=== PATIENT | male | born 1930 | race African-American/Black ===

== ENCOUNTER → 2016-07-02 | Outpatient (CLI) | payer MEDICARE | LOC: RAD 11:19 | PROVIDERS: ATTEND Physician Assistant | DX: R05 Cough (principal) | CPT/HCPCS: 71020 ==

== ENCOUNTER → 2016-07-31 | Outpatient (CLI) | payer MEDICARE | LOC: RAD 08:27 | PROVIDERS: ATTEND Urology | DX: N28.89 Other specified disorders of kidney and ureter (principal) | CPT/HCPCS: 74170; 82565 ==

== ENCOUNTER → 2016-09-06 | Outpatient (CLI) | payer MEDICARE | LOC: OD 11:33 | PROVIDERS: ATTEND Family Medicine | DX: R05 Cough (principal) | CPT/HCPCS: 71020 ==

== ENCOUNTER → 2017-02-12 | Outpatient (CLI) | payer MEDICARE ==
--- NOTE | 2017-02-12 17:41 | RADIOLOGY REPORT (SQ) ---
EXAM DESCRIPTION: CT ABDOMEN COMBO COMPLETED DATE/TIME: 02/12/2017 1:30 pm REASON FOR STUDY: RENAL MASS (N28.89) N28.89 OTHER SPECIFIED DISORDERS OF KIDNEY AND URETER COMPARISON: CT abdomen pelvis 07/31/2016, 10/09/2015, 10/03/2015 Bilateral renal ultrasound 06/19/2016 TECHNIQUE: CT scan of the abdomen performed with intravenous contrast, and without oral contrast. Co ntrasted imaging performed using helical scanning technique with dynamic intravenous contrast injecti on. Images reviewed with lung, soft tissue, and bone windows. Reconstructed coronal and sagittal MPR images reviewed. Delayed images for evaluation of the urinary system also acquired and evaluated. All images stored on PACS. All CT scanners at this facility use dose modulation, iterative reconstruction, and/or weight based d osing when appropriate to reduce radiation dose to as low as reasonably achievable (ALARA). [facility]: Dose Right [facility]: CareDose [facility]: Dose Right [facility]: Teradose 4D [facility]: [place] CONTRAST TYPE AND DOSE: contrast/concentration: Isovue 370.00 mg/ml; Total Contrast Delivered: 100.0 ml; Total Saline Delivered: 70.0 ml RENAL FUNCTION: Creatinine 1.1 RADIATION DOSE: Up-to-date CT equipment and radiation dose reduction techniques were employed. CTDIv ol: 8.1 - 30.2 mGy. DLP: 1782 mGy-cm.. LIMITATIONS: None. FINDINGS: LOWER CHEST: Cardiomegaly. Small hiatal hernia. No nodules or infiltrates. LIVER: Normal size. No masses. No dilated ducts. SPLEEN: Normal size. No focal lesions. PANCREAS: No masses. No significant calcifications. No adjacent inflammation or peripancreatic fluid collections. Pancreatic duct not dilated. GALLBLADDER: No identified stones by CT criteria. No inflammatory changes to suggest cholecystitis. ADRENAL GLANDS: No significant masses or asymmetry. RIGHT KIDNEY AND URETER: No solid masses. Tiny less than 5 mm right upper pole intrarenal nonobstru ctive calculi unchanged. No hydronephrosis or hydroureter. LEFT KIDNEY AND URETER: Stable masses in the left lower pole, solid with contrast enhancement compati ble with malignancy. Stable 3.6 x 3.4 cm left lower pole solid enhancing renal mass, stable left low er pole 1.8 x 1.8 cm solid enhancing mass. Tiny less than 5 mm left upper pole intrarenal nonobstru ctive stones. No hydronephrosis or hydroureter. AORTA AND VESSELS: No aneurysm. No dissection. Common origin celiac and SMA. Single renal arteries bilaterally with greater than 50% stenosis right proximal renal artery on coronal image 43 and axial image 68. RETROPERITONEUM: No retroperitoneal adenopathy, hemorrhage or masses. BOWEL AND PERITONEAL CAVITY: No masses or inflammatory changes. No free fluid or peritoneal masses. APPENDIX: Not in the field of view ABDOMINAL WALL: No masses. No hernias. BONES: Degenerative changes lower lumbar spine OTHER: No other significant finding. IMPRESSION: Stable solid masses left lower pole kidney Bilateral upper pole intrarenal nonobstructive intrarenal stones TECHNICAL DOCUMENTATION: JOB ID: [id number] Quality ID # [id number]: Final reports with documentation of one or more dose reduction techniques (e.g., Au tomated exposure control, adjustment of the mA and/or kV according to patient size, use of iterative reconstruction technique) 2010 [employer]- All Rights Reserved
== END ==
LOC: RAD 12:28
PROVIDERS: ATTEND Urology
DX: N28.89 Other specified disorders of kidney and ureter (principal)
CPT/HCPCS: 74170; 82565

== ENCOUNTER → 2017-10-23 | Outpatient (CLI) | payer MEDICARE ==
--- NOTE | 2017-10-23 17:55 | RADIOLOGY REPORT (SQ) ---
EXAM DESCRIPTION: CT ABDOMEN WITH IV ORAL CONT COMPLETED DATE/TIME: 10/23/2017 2:30 pm REASON FOR STUDY: RENAL MASS (N28.89) N28.89 OTHER SPECIFIED DISORDERS OF KIDNEY AND URETER COMPARISON: CT ABDOMEN WITH CONTRAST 10/09/2015, 07/31/2016, 02/12/2017 TECHNIQUE: CT scan of the abdomen performed with intravenous and without oral contrast using helical scanning technique with dynamic intravenous contrast injection. Images reviewed with lung, soft tiss ue, and bone windows. Reconstructed coronal and sagittal MPR images reviewed. Delayed images for eval uation of the urinary system also acquired and evaluated. All images stored on PACS. All CT scanners at this facility use dose modulation, iterative reconstruc tion, and/or weight based dosing when appropriate to reduce radiation dose to as low as reasonably ac hievable (ALARA). [facility]: Dose Right [facility]: CareDose [facility]: Dose Right [facility]: Teradose 4D [facility]: [employer] CONTRAST TYPE AND DOSE: contrast/concentration: Isovue 370.00 mg/ml; Total Contrast Delivered: 91.0 ml; Total Saline Delivered: 70.0 ml RENAL FUNCTION: Creatinine 1.1 RADIATION DOSE: CT Rad equipment meets quality standard of care and radiation dose reduction techniq ues were employed. CTDIvol: 13.9 - 16.8 mGy. DLP: 978 mGy-cm. . LIMITATIONS: None. FINDINGS: LOWER CHEST: Lung bases are clear. Mild cardiomegaly with old CABG. Small hiatal hernia LIVER: Normal size. No masses. No dilated ducts. SPLEEN: Normal size. No focal lesions. PANCREAS: No masses. No significant calcifications. No adjacent inflammation or peripancreatic fluid collections. Pancreatic duct not dilated. GALLBLADDER: No identified stones by CT criteria. No inflammatory changes to suggest cholecystitis. ADRENAL GLANDS: No significant masses or asymmetry. RIGHT KIDNEY AND URETER: No solid masses. Calcifications of the right upper and lower pole less desiree n 5 mm in size, either tiny intrarenal nonobstructive stones or vascular calcifications. No hydrone phrosis or hydroureter. LEFT KIDNEY AND URETER: Stable 3.7 x 3.4 cm left lower pole mass. Stable 1.9 x 1.8 cm left lower tabby e mass. Stable calcifications over the left upper and lower pole kidney, likely intrarenal nonobstr uctive stones less than 5 mm in size. No hydronephrosis or hydroureter. AORTA AND VESSELS: No aneurysm. No dissection. At least 50% right renal artery stenosis, stable. RETROPERITONEUM: No retroperitoneal adenopathy, hemorrhage or masses. BOWEL AND PERITONEAL CAVITY: No masses or inflammatory changes. No free fluid or peritoneal masses. APPENDIX: Not in the field of view ABDOMINAL WALL: Tiny fat containing umbilical hernia BONES: Degenerative disc changes lower lumbar spine OTHER: No other significant finding. IMPRESSION: Stable masses in the left lower pole kidney. TECHNICAL DOCUMENTATION: JOB ID: [id number] Quality ID # 436: Final reports with documentation of one or more dose reduction techniques (e.g., Au tomated exposure control, adjustment of the mA and/or kV according to patient size, use of iterative reconstruction technique) 2010 [employer]- All Rights Reserved Reading location - IP/workstation name: [email or web address]
== END ==
LOC: RAD 13:20
PROVIDERS: ATTEND Urology
DX: N28.89 Other specified disorders of kidney and ureter (principal)
CPT/HCPCS: 74160; 82565

== ENCOUNTER → 2018-10-27 | Outpatient (CLI) | payer MEDICARE ==
--- NOTE | 2018-10-27 16:01 | RADIOLOGY REPORT (SQ) ---
EXAM DESCRIPTION: CT ABDOMEN IV CONTRAST ONLY COMPLETED DATE/TIME: 10/27/2018 2:23 pm REASON FOR STUDY: LEFT RENAL MASS (N28.89) N28.89 OTHER SPECIFIED DISORDERS OF KIDNEY AND URETER COMPARISON: 10/23/2017 TECHNIQUE: CT scan of the abdomen performed with intravenous and without oral contrast using helical scanning technique with dynamic intravenous contrast injection. Images reviewed with lung, soft tiss ue, and bone windows. Reconstructed coronal and sagittal MPR images reviewed. Delayed images for eval uation of the urinary system also acquired and evaluated. All images stored on PACS. All CT scanners at this facility use dose modulation, iterative reconstruc tion, and/or weight based dosing when appropriate to reduce radiation dose to as low as reasonably ac hievable (ALARA). [facility]: Dose Right [facility]: CareDose [facility]: Dose Right [facility]: Teradose 4D [facility]: [employer] CONTRAST TYPE AND DOSE: contrast/concentration: Isovue 350.00 mg/ml; Total Contrast Delivered: 100.0 ml; Total Saline Delivered: 72.0 ml RENAL FUNCTION: GFR > 60. RADIATION DOSE: CT Rad equipment meets quality standard of care and radiation dose reduction techniq ues were employed. CTDIvol: 11.7 - 14.2 mGy. DLP: 851 mGy-cm. . LIMITATIONS: None. FINDINGS: LOWER CHEST: Cardiomegaly. No acute findings. LIVER: Normal size. No masses. No dilated ducts. SPLEEN: Normal size. No focal lesions. PANCREAS: No masses. No significant calcifications. No adjacent inflammation or peripancreatic fluid collections. Pancreatic duct not dilated. GALLBLADDER: No identified stones by CT criteria. No inflammatory changes to suggest cholecystitis. ADRENAL GLANDS: No significant masses or asymmetry. RIGHT KIDNEY AND URETER: No solid masses. Stable renal calculi. No hydronephrosis or hydroureter. LEFT KIDNEY AND URETER: Lower pole solid lesion 1.7 x 1.7 cm. 85 HU postcontrast. Larger lower pole lesion 2.7 x 3.0 cm not significantly changed by my measurements. 102 HU postcontrast. Stable trupti al calculi. No hydronephrosis or hydroureter. AORTA AND VESSELS: Ectasia. No aneurysm. RETROPERITONEUM: No retroperitoneal adenopathy, hemorrhage or masses. BOWEL AND PERITONEAL CAVITY: No masses or inflammatory changes. No free fluid or peritoneal masses. APPENDIX: Normal. ABDOMINAL WALL: No masses. No hernias. BONES: No significant or acute findings. OTHER: No other significant finding. IMPRESSION: 1. Stable solid lesions left kidney. 2. Stable bilateral renal calculi. TECHNICAL DOCUMENTATION: JOB ID: [id number] Quality ID # 436: Final reports with documentation of one or more dose reduction techniques (e.g., Au tomated exposure control, adjustment of the mA and/or kV according to patient size, use of iterative reconstruction technique) 2010 [employer]- All Rights Reserved Reading location - IP/workstation name: [email or web address]-
== END ==
LOC: RAD 13:23
PROVIDERS: ATTEND Urology
DX: N28.89 Other specified disorders of kidney and ureter (principal)
CPT/HCPCS: 74160; 82565

== ENCOUNTER 2019-06-27 13:42 | Observation (INO) | payer MEDICARE ==
--- NOTE | 2019-06-27 15:11 | ER Document Report ---
ED Medical Screen (RME) - General Chief Complaint: Weakness Stated Complaint: WEAKNESS Time Seen by Provider: 06/27/19 15:00 Primary Care Provider: SYLVAIN MESA MD [Primary Care Provider] - Follow up as needed Notes: Patient is a very pleasant 89-year-old male who presents to the emergency department after a fall. The fall happened 3 days ago. He had pain in his feet and ended up falling over. Patient denies any pain. His daughter is at bedside and states that he has been leaning to the left for the past few days and he is not acting his normal self. Exam: Tenderness to bilateral great toes. S1, S2. I have greeted and performed a rapid initial assessment of this patient. A comprehensive ED assessment and evaluation of the patient, analysis of test results and completion of medical decision making process will be conducted by an additional ED providers. TRAVEL OUTSIDE OF THE [place] 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, Hx Hypercholesterolemia, Hx Hypertension Denies: Hx Atrial Fibrillation, Hx Congestive Heart Failure, Hx Peripheral Va scular Disease, Hx Heart Murmur Pulmonary Medical History: Neurological Medical History: Denies: Hx Cerebrovascular Accident, Hx Seizures, Hx Parkinson's Disease Endocrine Medical History: Denies: Hx Graves' Disease, Hx Hyperthyroidism, Hx Hypothyroidism Renal/ Medical History: Denies: Hx Benign Prostatic Hyperplasia, Hx End Stage Renal Disease, Hx Kidney Stones, Hx Peritoneal Dialysis Malignancy Medical History: Denies Hx Leukemia GI Medical History: Denies: Hx Crohn's Disease, Hx Gastroesophageal Reflux Disease, Hx Hiatal Hernia, Hx Irritable Bowel, Hx Liver Failure, Hx Pancreatitis, Hx Ulcer Musculoskeltal Medical History: Reports Hx Arthritis - Hands,gout, Denies Hx Fibromyalgia, Denies Hx Multiple Sclerosis, Denies Hx Muscular Dystrophy, Denies Hx Systemic Lupus Erythematosus Psychiatric Medical History: Denies: Hx Dementia Traumatic Medical History: Denies: Hx Fractures Infectious Medical History: Denies: Hx HIV Past Surgical History: Reports: Hx Cardiac Surgery - bypass, Hx Coronary Artery Bypass Graft - triple bypass 2002, Hx Herniorrhaphy - x2. Denies: Hx Appendectomy, Hx Bowel Surgery, Hx Cholecystectomy, Hx Colostomy, Hx Gastric Bypass Surgery, Hx Pacemaker, Hx Tonsillectomy - Immunizations Hx Diphtheria, Pertussis, Tetanus Vaccination: No Physical Exam - Vital signs Vitals: Temp Pulse Resp BP Pulse Ox 98.4 F 68 16 134/82 H 96 06/27/19 14:00 06/27/19 14:00 06/27/19 14:00 06/27/19 14:00 06/27/19 14:00 Course - Vital Signs Vital signs: Temp Pulse Resp BP Pulse Ox 98.4 F 68 16 134/82 H 96 06/27/19 14:00 06/27/19 14:00 06/27/19 14:00 06/27/19 14:00 06/27/19 14:00 Doctor's Discharge - Discharge Referrals: SYLVAIN MESA MD [Primary Care Provider] - Follow up as needed
[2019-06-27 16:16] LABS: ABSOLUTE BASOPHILS # (AUTO) 0.1 10^3/uL (0.0-0.2); ABSOLUTE EOSINOPHILS # (AUTO) 0.1 10^3/uL (0.0-0.6); ABSOLUTE LYMPHOCYTES (AUTO) 1.9 10^3/uL (0.5-4.7); ABSOLUTE MONOCYTES (AUTO) 0.6 10^3/uL (0.1-1.4); ABSOLUTE NEUT (AUTO) 2.6 10^3/uL (1.7-8.2); BASOPHILS % (AUTO) 1.1 % (0-2); EOSINOPHILS % (AUTO) 2.4 % (0-6); HEMATOCRIT 39.6 % (37.9-51.0); HEMOGLOBIN 13.4 g/dL (13.5-17.0); LYMPHOCYTES % (AUTO) 35.1 % (13-45); MEAN CORPUSCULAR HEMOGLOBIN 27.7 pg (27.0-33.4); MEAN CORPUSCULAR HGB CONC 33.9 g/dL (32.0-36.0); MEAN CORPUSCULAR VOLUME 82 fl (80-97); MONOCYTES % (AUTO) 12.1 % (3-13); PLATELET COUNT 208 10^3/uL (150-450); RED BLOOD COUNT 4.83 10^6/uL (4.35-5.55); RED CELL DISTRIBUTION WIDTH 16.5 % (11.5-14.0); SEGMENTED NEUTROPHILS % (AUTO) 49.3 % (42-78); TOTAL CELLS COUNTED % (AUTO) 100 %; WHITE BLOOD COUNT 5.3 10^3/uL (4.0-10.5)
[2019-06-27 16:38] LABS: ALBUMIN 4.4 g/dL (3.5-5.0); ALKALINE PHOSPHATASE 62 U/L (38-126); ANION GAP 9 (5-19); ASPARTATE AMINO TRANSFERASE 19 U/L (17-59); BILIRUBIN,DIRECT 0.2 mg/dL (0.0-0.4); BILIRUBIN,TOTAL 0.5 mg/dL (0.2-1.3); BLOOD UREA NITROGEN 14 mg/dL (7-20); CALCIUM 9.7 mg/dL (8.4-10.2); CARBON DIOXIDE 27 mmol/L (22-30); CHLORIDE 105 mmol/L (98-107); GLUCOSE 78 mg/dL (75-110); POTASSIUM 4.3 mmol/L (3.6-5.0); TOTAL PROTEIN 7.3 g/dL (6.3-8.2)
--- NOTE | 2019-06-27 16:43 | RADIOLOGY REPORT (SQ) ---
EXAM DESCRIPTION: FOOT BILATERAL 3 VIEWS COMPLETED DATE/TIME: 06/27/2019 3:49 pm REASON FOR STUDY: fall; toe pain COMPARISON: None. NUMBER OF VIEWS: Three views. TECHNIQUE: AP, lateral and oblique radiographic images acquired of the bilateral feet. LIMITATIONS: None. FINDINGS: MINERALIZATION: Osteopenia. BONES: No acute fracture or dislocation. Chronic fracture deformities of the left 2nd, 3rd, 4th, and 5th metatarsals. No worrisome bone lesions. Left greater than right flatfoot deformities. JOINTS: No effusions. Moderate bilateral midfoot arthrosis. SOFT TISSUES: No soft tissue swelling. No foreign body. OTHER: No other significant finding. IMPRESSION: Osteopenia. No acute displaced fracture or dislocation. Chronic fracture deformities o f the left metatarsals. Left greater than right flatfoot deformities and midfoot arthrosis. TECHNICAL DOCUMENTATION: JOB ID: [id number] [employer]- All Rights Reserved Reading location - IP/workstation name: [email or web address]
--- NOTE | 2019-06-27 16:45 | RADIOLOGY REPORT (SQ) ---
EXAM DESCRIPTION: CHEST SINGLE VIEW COMPLETED DATE/TIME: 06/27/2019 3:49 pm REASON FOR STUDY: AMS COMPARISON: 07/02/2016 EXAM PARAMETERS: NUMBER OF VIEWS: One view. TECHNIQUE: Single frontal radiographic view of the chest acquired. RADIATION DOSE: NA LIMITATIONS: None. FINDINGS: LUNGS AND PLEURA: No opacities, masses or pneumothorax. No pleural effusion. MEDIASTINUM AND HILAR STRUCTURES: No masses. Contour normal. HEART AND VASCULAR STRUCTURES: Cardiomegaly status post median sternotomy. BONES: No acute findings. HARDWARE: None in the chest. OTHER: No other significant finding. IMPRESSION: Cardiomegaly without acute abnormality of the lungs in AP portable projection. TECHNICAL DOCUMENTATION: JOB ID: [id number] [employer]- All Rights Reserved Reading location - IP/workstation name: [email or web address]
--- NOTE | 2019-06-27 16:53 | RADIOLOGY REPORT (SQ) ---
EXAM DESCRIPTION: CT HEAD WITHOUT COMPLETED DATE/TIME: 06/27/2019 4:21 pm REASON FOR STUDY: AMS COMPARISON: 07/14/2015 TECHNIQUE: Axial images acquired through the brain without intravenous contrast. Images reviewed wi th bone, brain and subdural windows. Additional sagittal and coronal reconstructions were generated. Images stored on PACS. All CT scanners at this facility use dose modulation, iterative reconstruction, and/or weight based d osing when appropriate to reduce radiation dose to as low as reasonably achievable (ALARA). [facility]: Dose Right [facility]: CareDose [facility]: Dose Right [facility]: Teradose 4D [facility]: [employer] RADIATION DOSE: CT Rad equipment meets quality standard of care and radiation dose reduction techniq ues were employed. CTDIvol: 48.7 mGy. DLP: 980 mGy-cm. mGy. LIMITATIONS: None. FINDINGS: VENTRICLES: Normal size and contour. CEREBRUM: No masses. No hemorrhage. No midline shift. No evidence for acute infarction. Extensive periventricular white matter hypodensity and encephalomalacia of the right parietal and left occipita l lobes unchanged from prior. CEREBELLUM: No masses. No hemorrhage. No alteration of density. No evidence for acute infarction. EXTRAAXIAL SPACES: No fluid collections. No masses. ORBITS AND GLOBE: No intra- or extraconal masses. Normal contour of globe without masses. CALVARIUM: No fracture. PARANASAL SINUSES: No fluid or mucosal thickening. SOFT TISSUES: No mass or hematoma. OTHER: No other significant finding. IMPRESSION: 1. No acute intracranial pathology. 2. 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 EVIDENCE OF ACUTE STROKE: NO. COMMENT: Quality ID # 436: Final reports with documentation of one or more dose reduction techniques (e.g., Automated exposure control, adjustment of the mA and/or kV according to patient size, use of iterative reconstruction technique) TECHNICAL DOCUMENTATION: JOB ID: [id number] [employer]- All Rights Reserved Reading location - IP/workstation name: [email or web address]
[2019-06-27 21:07] LABS: APPEARANCE,URINE CLEAR; BILIRUBIN,URINE NEGATIVE (NEGATIVE); COLOR,URINE YELLOW; GLUCOSE, URINE NEGATIVE (NEGATIVE); KETONES,URINE NEGATIVE (NEGATIVE); LEUKOCYTE ESTERASE,URINE NEGATIVE (NEGATIVE); NITRITE,URINE NEGATIVE (NEGATIVE); PROTEIN,URINE 30 mg/dL (NEGATIVE)
--- NOTE | 2019-06-27 21:19 | ER Document Report ---
ED General - General Chief Complaint: Weakness Stated Complaint: WEAKNESS Time Seen by Provider: 06/27/19 15:00 Notes: Patient is an 89 year old male that comes to the emergency department for chief complaint of weakness, difficulty ambulating, and a fall that occurred 3 days ago. Patient lives with his daughter, she states that over the past 2 days he started leaning to the left and they have difficulty with him ambulating as he normally does. He ambulates with assistance with either a walker or direct assistance from a family member. Patient is blind, has a history of CABG, hypertension, hyperlipidemia. He denies headache, chest pain, vomiting, shortness of breath. He does report intermittent mild dizziness and intermittent pain in both of his feet which is chronic. Patient is still eating and drinking normally. Family denies history of CVA. 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 TRAVEL OUTSIDE OF THE [place] 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, Hx Hypercholesterolemia, Hx Hypertension Denies: Hx Atrial Fibrillation, Hx Congestive Heart Failure, Hx Peripheral Vascular Disease, Hx Heart Murmur Pulmonary Medical History: Neurological Medical History: Denies: Hx Cerebrovascular Accident, Hx Seizures, Hx Parkinson's Disease Endocrine Medical History: Denies: Hx Graves' Disease, Hx Hyperthyroidism, Hx Hypothyroidism Renal/ Medical History: Denies: Hx Benign Prostatic Hyperplasia, Hx End Stage Renal Disease, Hx Kidney Stones, Hx Peritoneal Dialysis Malignancy Medical History: Denies Hx Leukemia GI Medical History: Denies: Hx Crohn's Disease, Hx Gastroesophageal Reflux Disease, Hx Hiatal Hernia, Hx Irritable Bowel, Hx Liver Failure, Hx Pancreatitis, Hx Ulcer Musculoskeletal Medical History: Reports Hx Arthritis - Hands,gout, Denies Hx Fibromyalgia, Denies Hx Multiple Sclerosis, Denies Hx Muscular Dystrophy, Denies Hx Systemic Lupus Erythematosus Psychiatric Medical History: Denies: Hx Dementia Traumatic Medical History: Denies: Hx Fractures Infectious Medical History: Denies: Hx HIV Past Surgical History: Reports: Hx Cardiac Surgery - bypass, Hx Coronary Artery Bypass Graft - triple bypass 2002, Hx Herniorrhaphy - x2. Denies: Hx Appendectomy, Hx Bowel Surgery, Hx Cholecystectomy, Hx Colostomy, Hx Gastric Bypass Surgery, Hx Pacemaker, Hx Tonsillectomy - Immunizations Hx Diphtheria, Pertussis, Tetanus Vaccination: No Hx Pneumococcal Vaccination: 06/24/13 Review of Systems - Review of Systems Constitutional: See HPI EENT: No symptoms reported Cardiovascular: No symptoms reported Respiratory: No symptoms reported Gastrointestinal: No symptoms reported Genitourinary: No symptoms reported Male Genitourinary: No symptoms reported Musculoskeletal: No symptoms reported Skin: No symptoms reported Hematologic/Lymphatic: No symptoms reported Neurological/Psychological: See HPI Physical Exam - Vital signs Vitals: Temp Pulse Resp BP Pulse Ox 98.4 F 68 16 134/82 H 96 06/27/19 14:00 06/27/19 14:00 06/27/19 14:00 06/27/19 14:00 06/27/19 14:00 - Notes Notes: GENERAL: Alert, interacts well. No acute distress. HEAD: Normocephalic, atraumatic. EYES: Patient apparently blind ENT: Oral mucosa moist, tongue midline. Oropharynx unremarkable. Airway patent. Nares patent, no nasal septal hematoma, TM's intact. NECK: Full range of motion. Supple. Trachea midline. LUNGS: Clear to auscultation bilaterally, no wheezes, rales, or rhonchi. No respiratory distress. HEART: Regular rate and rhythm. No murmur ABDOMEN: Soft, non-tender. Non-distended. EXTREMITIES: Moves all 4 extremities spontaneously. No edema, normal radial and dorsalis pedis pulses bilaterally. No cyanosis. BACK: no cervical, thoracic, lumbar midline tenderness. No saddle anesthesia, normal distal neurovascular exam. Moves all extremities in full range of motion. NEUROLOGICAL: Alert and oriented x3. Normal speech. Normal [id number] testing. Blindness at baseline. Ataxia with imbalance to the left. PSYCH: Normal affect, normal mood. SKIN: Warm, dry, normal turgor. No rashes or lesions noted. Course - Re-evaluation Re-evalutation: Patient is alert, conversational, oriented, has no current complaints other than foot pain when he ambulates. However with attempts to ambulate patient has marked leaning to the left which makes this very difficult. This is new for the patient per family. 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 Chest x-ray without acute findings. X-ray of the feet showing chronic arthritis and old fractures but no acute findings. CBC, chemistry unremarkable. Family was very surprised to hear about his CVA, reportedly the had no idea, patient was also surprised. Because of his new neurological abnormality and difficulty ambulating I will discuss with his provider for CVA work-up and risk stratification. Patient and family state understanding and agreement. Discussed with Dr. Sarah, he will accept to observation status for work-up. - Vital Signs Vital signs: Temp Pulse Resp BP Pulse Ox 98.4 F 63 15 157/90 H 97 06/27/19 14:00 06/28/19 01:00 06/28/19 05:01 06/28/19 05:00 06/28/19 05:01 - Laboratory Result Diagrams: 06/27/19 15:27 06/27/19 15:27 Laboratory results interpreted by me: 06/27/19 06/27/19 15:27 20:35 Hgb 13.4 L RDW 16.5 H Urine Protein 30 H Urine Urobilinogen 2.0 H - EKG Interpretation by Me Additional EKG results interpreted by me: EKG shows sinus rhythm at a rate of 66, QTC of 411, PVC present. Borderline T wave inversions and lateral leads I and aVL, borderline flattened T waves anteriorly as well. No overt ST segment changes. Discharge - Discharge Clinical Impression: Ataxia, Weakness Condition: Stable Disposition: ADMITTED OBSERVATION Admitting Provider: Tyrel Unit Admitted: Telemetry
--- NOTE | 2019-06-27 23:00 | EKG REPORT ---
SEVERITY:- ABNORMAL ECG - SINUS RHYTHM VENTRICULAR PREMATURE COMPLEX PROBABLE LVH WITH SECONDARY REPOL ABNRM OLD INFERIOR OH, PERHAPS INFEROPOSTERIOR OH : Confirmed by: August Arora MD 27-Jun-2019 22:59:24
[2019-06-27] MEDS ORDERED: DEXTROSE 40% GEL 15 GM TUBE PO PRN ×2 (23:13)
[2019-06-27] MEDS ORDERED: GLUCAGON,HUMAN RECOMB 1 MG INJ IM PRN (23:13)
[2019-06-27] MEDS ORDERED: DEXTROSE 50%-WATER 25 GM/50 ML DISP.SYRIN IV PRN ×2 (23:13)
[2019-06-28 01:03] LABS: TROPONIN I < 0.012 ng/mL
[2019-06-28 06:53] LABS: CREATINE KINASE MB 1.21 ng/mL (<4.55)
[2019-06-28 06:59] LABS: TROPONIN I < 0.012 ng/mL
[2019-06-28] MEDS: INSULIN LISPRO 100 UNIT/ML 3 ML VIAL SUBCUT SCH ×4 (08:56→21:29)
[2019-06-28] MEDS ORDERED: ASPIRIN 325 MG TABLET, ENT COATED PO SCH (10:00)
--- NOTE | 2019-06-28 11:32 | PDOC H&P ---
History of Present Illness Admission Date/PCP: 06/27/19 23:28 KAILYN BERNABE MD Patient complains of: Weakness History of Present Illness: RUPINDER VELAZCO is a 89 year old male This is a 89-year-old male came to the emergency department with a chief complaint of weakness difficulty in walking and fall that occurred 3 days ago Patients live with his daughter and she stated that over the past 2 days patient started leaning to the left and there was difficulty with him to ambulatory and normally he does that Patient is ambulatory with the assistance with either walker or direct assistance with the family member 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 with a history of the coronary artery disease hypertension's hyperlipidemia Initial CT of the head and other blood work was stable decided to admit for further evaluations Patient's foot x-ray showed some chronic deformity but no acute fracture When I saw the patient is eating the breakfast denied any chest pain no short of breath no weakness Patient is CT of the head suggest old strokes but patient does not have any history of the stroke in the past patient not sure what was the stroke was happen At this point with this CT scan findings we will decided to admit for further evaluations Past Medical History Cardiac Medical History: Reports: Coronary Artery Disease, 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, Hyperlipidema, Hypertension Denies: Atrial Fibrillation, Congestive Heart Failure, Peripheral Vascular Disease, Heart Murmur Pulmonary Medical History: Neurological Medical History: Denies: Seizures Endocrine Medical History: Denies: Hyperthyroidism, Hypothyroidism Renal/ Medical History: Denies: End Stage Renal Disease Malignancy Medical History: Denies: Leukemia GI Medical History: Denies: Crohn's Disease, Gastroesophageal Reflux Disease, Hiatal Hernia Musculoskeltal Medical History: Reports: Arthritis - Hands,gout Denies: Fibromyalgia Psychiatric Medical History: Denies: Dementia Hematology: Reports: Anemia - hx of Denies: Hemophilia, Sickle Cell Disease Infectious Medical History: Denies: HIV Past Surgical History Past Surgical History: Reports: Coronary Artery Bypass Graft - triple bypass 2002, Herniorrhaphy - x2 Denies: Appendectomy, Cholecystectomy, Colostomy, Gastric Bypass Surgery, Pacemaker, Tonsillectomy Social History Information Source: Patient Lives with: Family Smoking Status: Unknown if Ever Smoked Frequency of Alcohol Use: None Hx Recreational Drug Use: No Hx Prescription Drug Abuse: No Family History Family History: Reviewed & Not Pertinent Parental Family History Reviewed: Yes Children Family History Reviewed: Yes Sibling(s) Family History Reviewed.: Yes Medication/Allergy Allergies/Adverse Reactions: No Known Allergies Allergy (Verified 06/27/19 15:00) Review of Systems Constitutional: PRESENT: weakness. ABSENT: chills, fever(s), headache(s), weight gain, weight loss Eyes: ABSENT: visual disturbances Ears: ABSENT: hearing changes Cardiovascular: ABSENT: chest pain, dyspnea on exertion, edema, orthropnea, palpitations Respiratory: ABSENT: cough, hemoptysis Gastrointestinal: ABSENT: abdominal pain, constipation, diarrhea, hematemesis, h ematochezia, nausea, vomiting Genitourinary: ABSENT: dysuria, hematuria Musculoskeletal: ABSENT: joint swelling Integumentary: ABSENT: rash, wounds Neurological: ABSENT: abnormal gait, abnormal speech, confusion, dizziness, focal weakness, syncope Psychiatric: ABSENT: anxiety, depression, homidical ideation, suicidal ideation Endocrine: ABSENT: cold intolerance, heat intolerance, menstrual abnormalities, polydipsia, polyuria Hematologic/Lymphatic: ABSENT: easy bleeding, easy bruising, lymphadenopathy Physical Exam Vital Signs: Temp Pulse Resp BP Pulse Ox 98.4 F 67 19 170/89 H 99 06/28/19 08:00 06/28/19 08:00 06/28/19 09:00 06/28/19 08:00 06/28/19 08:00 Intake & Output 06/27/19 06/28/19 06/29/19 06:59 06:59 06:59 Output Total 400 Balance -400 Weight 91.8 kg General appearance: PRESENT: no acute distress, well-developed, well-nourished Head exam: PRESENT: atraumatic, normocephalic Eye exam: PRESENT: conjunctiva pink, EOMI, PERRLA. ABSENT: scleral icterus Ear exam: PRESENT: normal external ear exam Mouth exam: PRESENT: moist, tongue midline Neck exam: PRESENT: full ROM. ABSENT: carotid bruit, JVD, lymphadenopathy, thyromegaly Respiratory exam: PRESENT: clear to auscultation roxana Cardiovascular exam: PRESENT: RRR. ABSENT: diastolic murmur, rubs, systolic murmur Pulses: PRESENT: normal dorsalis pedis pul, +2 pedal pulses bilateral Vascular exam: PRESENT: normal capillary refill GI/Abdominal exam: PRESENT: normal bowel sounds, soft. ABSENT: distended, guarding, mass, organolmegaly, rebound, tenderness Rectal exam: PRESENT: deferred Musculoskeletal exam: PRESENT: ambulatory Neurological exam: PRESENT: alert, awake, oriented to person, oriented to place, oriented to time, oriented to situation, CN II-XII grossly intact. ABSENT: motor sensory deficit Psychiatric exam: PRESENT: appropriate affect, normal mood. ABSENT: homicidal ideation, suicidal ideation Skin exam: PRESENT: dry, intact, warm. ABSENT: cyanosis, rash Results Laboratory Results: 06/27/19 15:27 06/27/19 15:27 06/27/19 06/27/19 06/27/19 15:27 15:27 20:35 WBC 5.3 RBC 4.83 Hgb 13.4 L Hct 39.6 MCV 82 MCH 27.7 MCHC 33.9 RDW 16.5 H Plt Count 208 Seg Neutrophils % 49.3 Sodium 140.9 Potassium 4.3 Chloride 105 Carbon Dioxide 27 Anion Gap 9 BUN 14 Creatinine 1.02 Est GFR ( Amer) > 60 Glucose 78 Calcium 9.7 Total Bilirubin 0.5 AST 19 Alkaline Phosphatase 62 Total Protein 7.3 Albumin 4.4 Urine Color YELLOW Urine Appearance CLEAR Urine pH 5.0 Ur Specific [place] 1.020 Urine Protein 30 H Urine Glucose (UA) NEGATIVE Urine Ketones NEGATIVE Urine Blood NEGATIVE Urine Nitrite NEGATIVE Ur Leukocyte Esterase NEGATIVE Urine WBC (Auto) 1 Urine RBC (Auto) 1 06/27/19 06/28/19 06/28/19 15:28 00:15 00:15 Creatine Kinase 104 CK-MB (CK-2) 1.10 Troponin I < 0.012 < 0.012 06/28/19 06/28/19 06:13 06:13 Creatine Kinase 103 CK-MB (CK-2) 1.21 Troponin I < 0.012 Impressions: Chest X-Ray 06/27/19 15:08 IMPRESSION: Cardiomegaly without acute abnormality of the lungs in AP portable projection. Head CT 06/27/19 15:08 IMPRESSION: 1. No acute intracranial pathology. 2. 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 EVIDENCE OF ACUTE STROKE: NO. Foot X-Ray 06/27/19 15:11 IMPRESSION: Osteopenia. No acute displaced fracture or dislocation. Chronic fracture deformities of the left metatarsals. Left greater than right flatfoot deformities and midfoot arthrosis. Assessment & Plan - Diagnosis (1) Ataxia Is this a current diagnosis for this admission?: Yes Plan: With the CT scan finding of the strokes We will get the MRI of the head and MRA and further stroke work-up while patients does not have a known history of the stroke in the past We continues the aspirin Plavix and statin (2) Hypertension Qualifiers: Hypertension type: essential hypertension Qualified Code(s): I10 - Essential (primary) hypertension Is this a current diagnosis for this admission?: Yes Plan: Clear all stable (3) Hyperlipidemia Qualifiers: Hyperlipidemia type: unspecified Qualified Code(s): E78.5 - Hyperlipidemia, unspecified Is this a current diagnosis for this admission?: Yes Plan: to statin (4) Weakness Is this a current diagnosis for this admission?: Yes Plan: Get the physical therapy evaluations (5) Colorectal cancer Is this a current diagnosis for this admission?: Yes Plan: T all stable patients follow with the Dr. Camacho (6) Coronary artery disease Qualifiers: Coronary Disease-Associated Artery/Lesion type: bypass graft, autologous vein Associated angina: without angina Qualified Code(s): I25.810 - Atherosclerosis of coronary artery bypass graft(s) without angina pectoris Is this a current diagnosis for this admission?: Yes Plan: Get the cardiac enzymes every 6x3 Patient is already seen Dr. SAHNI as outpatients will discuss with him currently no acute coronary symptoms - Time Time Spent: 50 to 70 Minutes Medications reviewed and adjusted accordingly: Yes Anticipated discharge: Home, Home with Homehealth Within: Other - Inpatient Certification Based on my medical assessment, after consideration of the patient's comorbidities, presenting symptoms, or acuity I expect that the services needed warrant INPATIENT care.: Yes I certify that my determination is in accordance with my understanding of Medicare's requirements for reasonable and necessary INPATIENT services [42 CFR 412.3e].: Yes Medical Necessity: Significant Comorbidiites Make Outpatient Treatment Too Risky, Need Close Monitoring Due to Risk of Patient Decompensation Post Hospital Care: D/C Supervisor [employer] Documentation - Plan Summary Plan Summary: Admit the patient in a telemetry bed Get the MRI MRA of the head Get the physical therapy evaluation Carotid Doppler
[2019-06-28 12:30] LABS: CREATINE KINASE MB 1.49 ng/mL (<4.55)
[2019-06-28 12:35] LABS: TROPONIN I < 0.012 ng/mL
--- NOTE | 2019-06-28 14:22 | RADIOLOGY REPORT (SQ) ---
EXAM DESCRIPTION: MRA HEAD WITHOUT; MRI HEAD WITHOUT COMPLETED DATE/TIME: 06/28/2019 12:32 pm REASON FOR STUDY: cva COMPARISON: CT head 06/27/2018. CT head 2016. TECHNIQUE: Multiplanar imaging includes non-contrasted T1, T2, FLAIR, and diffusion with ADC map seq uences. Images stored on PACS. Axial 3-D ghvi-qb-[id number] acquisition imaging performed through the brain in the area of the [place]. Images reformatted using 3-D MIPS. LIMITATIONS: None. FINDINGS: ANATOMY: No anomalies. Normal vascular flow voids. Pituitary fossa normal. CSF SPACES: Dilated, age related atrophy. CEREBRUM: Multifocal small vessel changes, FLAIR hyperintense deep patchy bilateral deep white matter . Most confluent in the right parietal and occipital lobes with associated ex vacuo dilatation of th e adjacent ventricle. Consistent with chronic infarct. No acute hemorrhage or mass or shift. 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 No mastoid fluid. IAC's normal. DIFFUSION IMAGING: Negative for acute or sub-acute infarction. ORBITS: No masses. Globes normal. PARANASAL SINUSES: No fluid levels. Mucosa normal. OTHER: No other significant finding. MRA HEAD SOURCE IMAGES: No unexpected findings. No large masses. 3-D MIP: Distal left vertebral not seen. Right vertebral and basilar arteries normal. Patent anteri or, middle and posterior cerebral arteries. Mild focal rounded signal measuring 4 mm along the left posterior cerebral artery. While artifact is in the differential, this may represent a small aneurys m (please see series 3, image 81/164). OTHER: No other significant finding. IMPRESSION: 1. Chronic brain changes. 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 No acute CVA detected. 2. Patent cerebral arteries. Potential 4 mm aneurysm along the proximal left posterior cerebral [place] ry. Consider close clinical and surveillance imaging followup. Call report tasked to the [facility] team at the time of interpretation to be called with in the next day or so. EVIDENCE OF ACUTE STROKE: NO. TECHNICAL DOCUMENTATION: JOB ID: [id number] [employer]- All Rights Reserved Reading location - IP/workstation name: [email or web address]
--- NOTE | 2019-06-28 14:22 | RADIOLOGY REPORT (SQ) ---
EXAM DESCRIPTION: MRA HEAD WITHOUT; MRI HEAD WITHOUT COMPLETED DATE/TIME: 06/28/2019 12:32 pm REASON FOR STUDY: cva COMPARISON: CT head 06/27/2018. CT head 2016. TECHNIQUE: Multiplanar imaging includes non-contrasted T1, T2, FLAIR, and diffusion with ADC map seq uences. Images stored on PACS. Axial 3-D qqah-ys-oywbiw acquisition imaging performed through the brain in the area of the [place]. Images reformatted using 3-D MIPS. LIMITATIONS: None. FINDINGS: ANATOMY: No anomalies. Normal vascular flow voids. Pituitary fossa normal. CSF SPACES: Dilated, age related atrophy. CEREBRUM: Multifocal small vessel changes, FLAIR hyperintense deep patchy bilateral deep white matter . Most confluent in the right parietal and occipital lobes with associated ex vacuo dilatation of th e adjacent ventricle. Consistent with chronic infarct. No acute hemorrhage or mass or shift. 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 No mastoid fluid. IAC's normal. DIFFUSION IMAGING: Negative for acute or sub-acute infarction. ORBITS: No masses. Globes normal. PARANASAL SINUSES: No fluid levels. Mucosa normal. OTHER: No other significant finding. MRA HEAD SOURCE IMAGES: No unexpected findings. No large masses. 3-D MIP: Distal left vertebral not seen. Right vertebral and basilar arteries normal. Patent anteri or, middle and posterior cerebral arteries. Mild focal rounded signal measuring 4 mm along the left posterior cerebral artery. While artifact is in the differential, this may represent a small aneurys m (please see series 3, image 81/164). OTHER: No other significant finding. IMPRESSION: 1. Chronic brain changes. 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 No acute CVA detected. 2. Patent cerebral arteries. Potential 4 mm aneurysm along the proximal left posterior cerebral [place] ry. Consider close clinical and surveillance imaging followup. Call report tasked to the [facility] team at the time of interpretation to be called with in the next day or so. EVIDENCE OF ACUTE STROKE: NO. TECHNICAL DOCUMENTATION: JOB ID: [id number] [employer]- All Rights Reserved Reading location - IP/workstation name: [email or web address]
[2019-06-28] MEDS: CARVEDILOL 6.25 MG TABLET PO SCH (21:41)
[2019-06-28] MEDS: ATORVASTATIN CALCIUM 20 MG TABLET PO SCH (21:41)
[2019-06-28] MEDS: CETIRIZINE 5 MG TABLET PO SCH (21:41)
[2019-06-29] MEDS: INSULIN LISPRO 100 UNIT/ML 3 ML VIAL SUBCUT SCH ×4 (08:22→22:10)
--- NOTE | 2019-06-29 08:40 | PDOC PROGRESS REPORT ---
Subjective Progress Note for:: 06/29/19 Subjective:: Patient have a 1 fall today but most likely a coming from the lower extremities Patient does not have any acute strokelike symptoms and MRI except for a small aneurysm Patient denied any chest pain no short of breath Since denied any hurting Reason For Visit: ATAXIA,WEAKNESS Physical Exam Vital Signs: Temp Pulse Resp BP Pulse Ox 98.2 F 78 16 149/65 H 97 06/29/19 03:50 06/29/19 07:15 06/29/19 07:15 06/29/19 07:15 06/29/19 07:15 Intake & Output 06/28/19 06/29/19 06/30/19 06:59 06:59 06:59 Intake Total 290 Output Total 400 250 Balance -400 40 Weight 91.8 kg 96.8 kg General appearance: PRESENT: no acute distress, well-developed, well-nourished Head exam: PRESENT: atraumatic, normocephalic Eye exam: PRESENT: conjunctiva pink, EOMI, PERRLA. ABSENT: scleral icterus Ear exam: PRESENT: normal external ear exam Mouth exam: PRESENT: moist, tongue midline Neck exam: PRESENT: full ROM. ABSENT: carotid bruit, JVD, lymphadenopathy, thyromegaly Respiratory exam: PRESENT: clear to auscultation roxana Cardiovascular exam: PRESENT: RRR. ABSENT: diastolic murmur, rubs, systolic murmur Pulses: PRESENT: normal dorsalis pedis pul, +2 pedal pulses bilateral Vascular exam: PRESENT: normal capillary refill GI/Abdominal exam: PRESENT: normal bowel sounds, soft. ABSENT: distended, guarding, mass, organolmegaly, rebound, tenderness Rectal exam: PRESENT: deferred Musculoskeletal exam: PRESENT: ambulatory Neurological exam: PRESENT: alert, awake, oriented to person, oriented to place, oriented to time, oriented to situation, CN II-XII grossly intact. ABSENT: motor sensory deficit Psychiatric exam: PRESENT: appropriate affect, normal mood. ABSENT: homicidal ideation, suicidal ideation Skin exam: PRESENT: dry, intact, warm. ABSENT: cyanosis, rash Results Laboratory Results: 06/27/19 15:27 06/27/19 15:27 06/27/19 06/28/19 06/28/19 15:28 00:15 00:15 Creatine Kinase 104 CK-MB (CK-2) 1.10 Troponin I < 0.012 < 0.012 06/28/19 06/28/19 06/28/19 06:13 06:13 11:52 Creatine Kinase 103 127 CK-MB (CK-2) 1.21 Troponin I < 0.012 06/28/19 11:52 Creatine Kinase CK-MB (CK-2) 1.49 Troponin I < 0.012 Impressions: Chest X-Ray 06/27/19 15:08 IMPRESSION: Cardiomegaly without acute abnormality of the lungs in AP portable projection. Head CT 06/27/19 15:08 IMPRESSION: 1. No acute intracranial pathology. 2. 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 EVIDENCE OF ACUTE STROKE: NO. Foot X-Ray 06/27/19 15:11 IMPRESSION: Osteopenia. No acute displaced fracture or dislocation. Chronic fracture deformities of the left metatarsals. Left greater than right flatfoot deformities and midfoot arthrosis. Brain MRI with MRA 06/28/19 00:00 IMPRESSION: 1. Chronic brain changes. 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 No acute CVA detected. 2. Patent cerebral arteries. Potential 4 mm aneurysm along the proximal left posterior cerebral artery. Consider close clinical and surveillance imaging followup. Call report tasked to the [facility] team at the time of interpretation to be called within the next day or so. EVIDENCE OF ACUTE STROKE: NO. Head MRI 06/28/19 00:00 IMPRESSION: 1. Chronic brain changes. 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 No acute CVA detected. 2. Patent cerebral arteries. Potential 4 mm aneurysm along the proximal left posterior cerebral artery. Consider close clinical and surveillance imaging followup. Call report tasked to the [facility] team at the time of interpretation to be called within the next day or so. EVIDENCE OF ACUTE STROKE: NO. Assessment & Plan - Diagnosis (1) Ataxia Is this a current diagnosis for this admission?: Yes Plan: We will get the CT of the LS spine Get the physical therapy evaluations Check a vitamin B12 level (2) Hypertension Qualifiers: Hypertension type: essential hypertension Qualified Code(s): I10 - Essential (primary) hypertension Is this a current diagnosis for this admission?: Yes Plan: Clear all stable (3) Hyperlipidemia Qualifiers: Hyperlipidemia type: unspecified Qualified Code(s): E78.5 - Hyperlipidemia, unspecified Is this a current diagnosis for this admission?: Yes Plan: to statin (4) Weakness Is this a current diagnosis for this admission?: Yes Plan: Get the physical therapy evaluations (5) Colorectal cancer Is this a current diagnosis for this admission?: Yes Plan: T all stable patients follow with the Dr. Camacho (6) Coronary artery disease Qualifiers: Coronary Disease-Associated Artery/Lesion type: bypass graft, autologous vein Associated angina: without angina Qualified Code(s): I25.810 - Atherosclerosis of coronary artery bypass graft(s) without angina pectoris Is this a current diagnosis for this admission?: Yes Plan: Get the cardiac enzymes every 6x3 Patient is already seen Dr. SAHNI as outpatients will discuss with him currently no acute coronary symptoms - Time Time Spent with patient: 15-24 minutes Level of Care: IMCU Medications reviewed and adjusted accordingly: Yes Anticipated discharge: Other Within: Other - Plan Summary Plan Summary: Get the physical therapy lotions we will get the CT of the LS spine
[2019-06-29] MEDS: CLOPIDOGREL BISULFATE 75 MG TABLET PO SCH (09:40)
[2019-06-29] MEDS: ASPIRIN 81 MG TABLET, ENT COATED PO SCH (09:40)
[2019-06-29] MEDS: AMLODIPINE BESYLATE 10 MG TABLET PO SCH (09:40)
[2019-06-29] MEDS: LISINOPRIL 10 MG TABLET PO SCH (09:40)
[2019-06-29] MEDS: ALLOPURINOL 100 MG TABLET PO SCH (09:40)
--- NOTE | 2019-06-29 15:44 | RADIOLOGY REPORT (SQ) ---
EXAM DESCRIPTION: MRI LUMBAR SPINE WITHOUT COMPLETED DATE/TIME: 06/29/2019 10:37 am REASON FOR STUDY: Frequent fall lower extremity weakness D50.8 OTHER IRON DEFICIENCY ANEMIAS COMPARISON: None. TECHNIQUE: Sagittal and Axial imaging includes T1, T2, STIR and gradient echo sequences. Coronal T2/ HASTE imaging. LIMITATIONS: None. FINDINGS: VISUALIZED UPPER ABDOMEN: Limited evaluation. No acute or suspicious findings suggested. SEGMENTATION: There are 5 tio-ive-lsltojy lumbar vertebral bodies. Transitional lumbosacral anatomy with L5 delineated using the iliolumbar ligaments. There is a rudimentary disc at S1-2. ALIGNMENT: Straightening of the normal lumbar lordosis. VERTEBRAE: No compression deformity. Schmorl's nodes at L4-5 with associated bony edema. BONE MARROW: No marrow replacement. There is chronic [place] endplate changes most conspicuous at L3 a nd L5. Schmorl's node at L4-5 with associated mild bony edema. DISC SIGNAL: There is multilevel disc desiccation with height loss greatest at L5-S1. Rudimentary di sc noted at S1-2. POSTERIOR ELEMENTS: Generally intact. No pars defect evident. HARDWARE: None in the spine. CORD AND CONUS: Normal in size and signal intensity. Conus at the appropriate L1 level. SOFT TISSUES: No aortic aneurysm seen. No bulky retroperitoneal adenopathy or mass. No paraspinal mas s or fluid. L1-L2: No significant spinal stenosis or exit foraminal stenosis. L2-L3: No significant spinal stenosis or exit foraminal stenosis. L3-L4: Disc height loss with circumferential disc bulge. There is moderate resultant spinal canal st enosis. There is mild bilateral neural foraminal narrowing secondary to disc disease. L4-L5: L4 and L5 endplate Schmorl's nodes with associated bony edema. There is mild disc height loss . There is a circumferential disc bulge with resultant severe spinal canal stenosis and totalis effa cement of the CSF space. There is moderate bilateral neural foraminal narrowing secondary to disc an d set disease, left greater than right. L5-S1: Disc height loss with circumferential disc bulge and resultant high-grade spinal canal stenosi s with total effacement of the CSF space. There is rcfc-um-slejzsld bilateral neural foraminal narro wing. LOWER THORACIC: Incompletely imaged. No stenosis seen. SACRUM: Rudimentary disc at S1. OTHER: Prominent epidural fat contributes to spinal canal narrowing. IMPRESSION: 1. 5 rfc-rrk-yufohgi lumbar vertebral bodies. Transitional lumbosacral anatomy with L5 delineated using the iliolumbar ligaments. There is a rudimentary disc at S1-2. 2. Multilevel degenerative disc disease with resultant high-grade spinal canal stenosis at L4-5 and L5-S1 secondary to circumferential disc bulge. There is additional multilevel neural foraminal narro wing greatest at L4-5 on the left. 3. L4-5 Schmorl's node with associated bony edema. No other evidence of acute bony abnormality. TECHNICAL DOCUMENTATION: JOB ID: [id number] [employer]- All Rights Reserved Reading location - IP/workstation name: [email or web address]
[2019-06-29] MEDS: ATORVASTATIN CALCIUM 20 MG TABLET PO SCH (21:20)
[2019-06-29] MEDS: CARVEDILOL 6.25 MG TABLET PO SCH (21:20)
[2019-06-29] MEDS: CETIRIZINE 5 MG TABLET PO SCH (21:20)
[2019-06-30 05:09] LABS: ABSOLUTE EOSINOPHILS # (AUTO) 0.1 10^3/uL (0.0-0.6); ABSOLUTE LYMPHOCYTES (AUTO) 1.8 10^3/uL (0.5-4.7); ABSOLUTE MONOCYTES (AUTO) 0.6 10^3/uL (0.1-1.4); BASOPHILS % (AUTO) 0.8 % (0-2); EOSINOPHILS % (AUTO) 2.9 % (0-6); HEMATOCRIT 37.6 % (37.9-51.0); HEMOGLOBIN 12.9 g/dL (13.5-17.0); LYMPHOCYTES % (AUTO) 39.3 % (13-45); MEAN CORPUSCULAR HEMOGLOBIN 27.5 pg (27.0-33.4); MEAN CORPUSCULAR HGB CONC 34.3 g/dL (32.0-36.0); MEAN CORPUSCULAR VOLUME 80 fl (80-97); MONOCYTES % (AUTO) 13.8 % (3-13); PLATELET COUNT 198 10^3/uL (150-450); RED BLOOD COUNT 4.69 10^6/uL (4.35-5.55); RED CELL DISTRIBUTION WIDTH 16.9 % (11.5-14.0); SEGMENTED NEUTROPHILS % (AUTO) 43.2 % (42-78); TOTAL CELLS COUNTED % (AUTO) 100 %; WHITE BLOOD COUNT 4.7 10^3/uL (4.0-10.5)
[2019-06-30 05:22] LABS: ANION GAP 8 (5-19); BLOOD UREA NITROGEN 14 mg/dL (7-20); CALCIUM 9.3 mg/dL (8.4-10.2); CARBON DIOXIDE 26 mmol/L (22-30); CHLORIDE 104 mmol/L (98-107); GLUCOSE 101 mg/dL (75-110); POTASSIUM 4.3 mmol/L (3.6-5.0)
[2019-06-30] MEDS: INSULIN LISPRO 100 UNIT/ML 3 ML VIAL SUBCUT SCH ×4 (08:23→23:00)
--- NOTE | 2019-06-30 08:35 | PDOC PROGRESS REPORT ---
Subjective Progress Note for:: 06/30/19 Subjective:: Patient is currently doing fair pt walk with the physical therapy yesterday with some behavioral health assistant Patient MRI of the LS spine so some L4-L5 some mild stenosis Reason For Visit: ATAXIA,WEAKNESS Physical Exam Vital Signs: Temp Pulse Resp BP Pulse Ox 97.3 F 63 16 123/58 L 96 06/30/19 07:51 06/30/19 07:51 06/30/19 07:51 06/30/19 07:51 06/30/19 07:51 Intake & Output 06/29/19 06/30/19 07/01/19 06:59 06:59 06:59 Intake Total 290 720 Output Total 250 600 Balance 40 120 Weight 96.8 kg 94.7 kg General appearance: PRESENT: no acute distress, well-developed, well-nourished Head exam: PRESENT: atraumatic, normocephalic Eye exam: PRESENT: conjunctiva pink, EOMI, PERRLA. ABSENT: scleral icterus Ear exam: PRESENT: normal external ear exam Mouth exam: PRESENT: moist, tongue midline Neck exam: PRESENT: full ROM. ABSENT: carotid bruit, JVD, lymphadenopathy, thyromegaly Respiratory exam: PRESENT: clear to auscultation roxana Cardiovascular exam: PRESENT: RRR. ABSENT: diastolic murmur, rubs, systolic murmur Pulses: PRESENT: normal dorsalis pedis pul, +2 pedal pulses bilateral Vascular exam: PRESENT: normal capillary refill GI/Abdominal exam: PRESENT: normal bowel sounds, soft. ABSENT: distended, guarding, mass, organolmegaly, rebound, tenderness Rectal exam: PRESENT: deferred Musculoskeletal exam: PRESENT: ambulatory Neurological exam: PRESENT: alert, awake, oriented to person, oriented to place, oriented to time, oriented to situation, CN II-XII grossly intact. ABSENT: m otor sensory deficit Psychiatric exam: PRESENT: appropriate affect, normal mood. ABSENT: homicidal ideation, suicidal ideation Skin exam: PRESENT: dry, intact, warm. ABSENT: cyanosis, rash Results Laboratory Results: 06/30/19 04:13 06/30/19 04:13 06/30/19 06/30/19 04:13 04:13 WBC 4.7 RBC 4.69 Hgb 12.9 L Hct 37.6 L MCV 80 MCH 27.5 MCHC 34.3 RDW 16.9 H Plt Count 198 Seg Neutrophils % 43.2 Sodium 137.8 Potassium 4.3 Chloride 104 Carbon Dioxide 26 Anion Gap 8 BUN 14 Creatinine 1.05 Est GFR ( Amer) > 60 Glucose 101 Calcium 9.3 06/27/19 06/28/19 06/28/19 15:28 00:15 00:15 Creatine Kinase 104 CK-MB (CK-2) 1.10 Troponin I < 0.012 < 0.012 06/28/19 06/28/19 06/28/19 06:13 06:13 11:52 Creatine Kinase 103 127 CK-MB (CK-2) 1.21 Troponin I < 0.012 06/28/19 11:52 Creatine Kinase CK-MB (CK-2) 1.49 Troponin I < 0.012 Impressions: Chest X-Ray 06/27/19 15:08 IMPRESSION: Cardiomegaly without acute abnormality of the lungs in AP portable projection. Head CT 06/27/19 15:08 IMPRESSION: 1. No acute intracranial pathology. 2. 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 EVIDENCE OF ACUTE STROKE: NO. Foot X-Ray 06/27/19 15:11 IMPRESSION: Osteopenia. No acute displaced fracture or dislocation. Chronic fracture deformities of the left metatarsals. Left greater than right flatfoot deformities and midfoot arthrosis. Brain MRI with MRA 06/28/19 00:00 IMPRESSION: 1. Chronic brain changes. 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 No acute CVA detected. 2. Patent cerebral arteries. Potential 4 mm aneurysm along the proximal left posterior cerebral artery. Consider close clinical and [facility] Call report tasked to the [facility] team at the time of interpretation to be called within the next day or so. EVIDENCE OF ACUTE STROKE: NO. Head MRI 06/28/19 00:00 IMPRESSION: 1. Chronic brain changes. 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 No acute CVA detected. 2. Patent cerebral arteries. Potential 4 mm aneurysm along the proximal left posterior cerebral artery. Consider close clinical and surveillance [facility] Call report tasked to the [facility] team at the time of interpretation to be called within the next day or so. EVIDENCE OF ACUTE STROKE: NO. Lumbar Spine MRI 06/29/19 00:00 IMPRESSION: 1. 5 [id number] lumbar vertebral bodies. Transitional bernardo mbosacral anatomy with L5 delineated using the iliolumbar ligaments. There is a rudimentary disc at S1-2. 2. Multilevel degenerative disc disease with resultant high-grade spinal canal stenosis at L4-5 and L5-S1 secondary to circumferential disc bulge. There is additional multilevel neural foraminal narrowing greatest at L4-5 on the left. 3. L4-5 Schmorl's node with associated bony edema. No other evidence of acute bony abnormality. Assessment & Plan - Diagnosis (1) Ataxia Is this a current diagnosis for this admission?: Yes Plan: We will get the physical therapy probably discharged with the physical therapy at home (2) Hypertension Qualifiers: Hypertension type: essential hypertension Qualified Code(s): I10 - Essential (primary) hypertension Is this a current diagnosis for this admission?: Yes Plan: Clear all stable (3) Hyperlipidemia Qualifiers: Hyperlipidemia type: unspecified Qualified Code(s): E78.5 - Hyperlipidemia, unspecified Is this a current diagnosis for this admission?: Yes Plan: to statin (4) Weakness Is this a current diagnosis for this admission?: Yes Plan: Get the physical therapy evaluations (5) Colorectal cancer Is this a current diagnosis for this admission?: Yes Plan: T all stable patients follow with the Dr. Camacho (6) Coronary artery disease Qualifiers: Coronary Disease-Associated Artery/Lesion type: bypass graft, autologous vein Associated angina: without angina Qualified Code(s): I25.810 - Atherosclerosis of coronary artery bypass graft(s) without angina pectoris Is this a current diagnosis for this admission?: Yes Plan: Get the cardiac enzymes every 6x3 Patient is already seen Dr. SAHNI as outpatients will discuss with him currently no acute coronary symptoms (7) Brain aneurysm Is this a current diagnosis for this admission?: Yes Plan: Follow outpatient neurosurgery - Time Time Spent with patient: 15-24 minutes Level of Care: IMCU Medications reviewed and adjusted accordingly: Yes Anticipated discharge: Home with Homehealth Within: Other - Plan Summary Plan Summary: Will discuss with the family today Patient otherwise doing fair We will get the orthopedic consults for the back and the foot deformity before the discharge mother needs to be do any intervention or not
[2019-06-30] MEDS: DOCUSATE SODIUM 100 MG CAPSULE PO SCH (09:41)
[2019-06-30] MEDS: LISINOPRIL 10 MG TABLET PO SCH (09:41)
[2019-06-30] MEDS: ASPIRIN 81 MG TABLET, ENT COATED PO SCH (09:42)
[2019-06-30] MEDS: CLOPIDOGREL BISULFATE 75 MG TABLET PO SCH (09:42)
[2019-06-30] MEDS: AMLODIPINE BESYLATE 10 MG TABLET PO SCH (09:42)
[2019-06-30] MEDS: ALLOPURINOL 100 MG TABLET PO SCH (09:42)
--- NOTE | 2019-06-30 14:33 | PDOC CONSULTATION ---
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 According to the family and ER note he was leaning to the left for the past couple days. He did have a fall but no significant traumatic event. Patient had extensive work-up with head CT, brain MRI with chronic changes no evidence of acute abnormality. According to the patient his major complaint is not discomfort but rather lower extremity weakness and difficulty with ambulation. Patient denies bowel or bladder symptoms. Denies numbness or tingling. Also complains of bilateral foot deformities which are fairly chronic in nature according to the patient and never caused him difficulty in terms of ambulation. 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, Hyperlipidema, Hypertension Denies: Atrial Fibrillation, Congestive Heart Failure, Peripheral Vascular Disease, Heart Murmur Pulmonary Medical History: Neurological Medical History: Denies: Seizures Endocrine Medical History: Denies: Hyperthyroidism, Hypothyroidism Renal/ Medical History: Denies: End Stage Renal Disease Malignancy Medical History: Denies: Leukemia GI Medical History: Denies: Crohn's Disease, Gastroesophageal Reflux Disease, Hiatal Hernia Musculoskeltal Medical History: Reports: Arthritis - Hands,gout Denies: Fibromyalgia Psychiatric Medical History: Denies: Dementia, Depression Hematology: Reports: Anemia - hx of Denies: Hemophilia, Sickle Cell Disease Infectious Medical History: Denies: HIV Past Surgical History Past Surgical History: Reports: Coronary Artery Bypass Graft - triple bypass 2002, Herniorrhaphy - x2 Denies: Appendectomy, Cholecystectomy, Colostomy, Gastric Bypass Surgery, Pacemaker, Tonsillectomy Social History Lives with: Family Smoking Status: Former Smoker Electronic Cigarette use?: No Last Time Smoked: 06/24/2009 Frequency of Alcohol Use: None Hx Recreational Drug Use: No Drugs: None Hx Prescription Drug Abuse: No Family History Family History: Reviewed & Not Pertinent Parental Family History Reviewed: No Children Family History Reviewed: No Sibling(s) Family History Reviewed.: No Medication/Allergy Home Medications: Allopurinol [Zyloprim 100 mg Tablet] 100 mg PO DAILY 06/28/19 Amlodipine Besylate [Norvasc 10 mg Tablet] 10 mg PO DAILY 06/28/19 Aspirin [Adult Low Dose Aspirin EC] 81 mg PO DAILY 06/28/19 Atorvastatin Calcium [Lipitor 10 mg Tablet] 10 mg PO QHS 06/28/19 Carvedilol [Coreg] 6.25 mg PO QHS 06/28/19 Clopidogrel Bisulfate [Plavix] 75 mg PO DAILY 06/28/19 Docusate Sodium [Stool Softener] 100 mg PO DAILY 06/28/19 Famotidine [Pepcid 40 mg Tablet] 40 mg PO DAILY 06/28/19 Iron 325 mg PO BID 06/28/19 Levocetirizine Dihydrochloride [Xyzal] 5 mg PO QHS 06/28/19 Lisinopril [Prinivil 10 mg Tablet] 10 mg PO DAILY 06/28/19 [place]-3 Fatty Acids/Fish Oil [Fish Oil 1,000 mg Capsule] 1 cap PO BID 06/28/19 Allergies/Adverse Reactions: No Known Allergies Allergy (Verified 06/27/19 15:00) Review of Systems Constitutional: PRESENT: weakness. ABSENT: chills, fever(s), headache(s), weight gain, weight loss Eyes: ABSENT: visual disturbances Ears: ABSENT: hearing changes Cardiovascular: ABSENT: chest pain, dyspnea on exertion, edema, orthropnea, palpitations Respiratory: ABSENT: cough, hemoptysis Gastrointestinal: ABSENT: abdominal pain, constipation, diarrhea, hematemesis, hematochezia, nausea, vomiting Genitourinary: ABSENT: dysuria, hematuria Musculoskeletal: PRESENT: as per HPI Integumentary: ABSENT: rash, wounds Neurological: PRESENT: abnormal gait. ABSENT: abnormal speech, confusion, dizziness, focal weakness, syncope Psychiatric: ABSENT: anxiety, depression, homidical ideation, suicidal ideation Endocrine: ABSENT: cold intolerance, heat intolerance, menstrual abnormalities, polydipsia, polyuria Hematologic/Lymphatic: ABSENT: easy bleeding, easy bruising, lymphadenopathy Physical Exam Vital Signs: Temp Pulse Resp BP Pulse Ox 97.8 F 73 16 147/74 H 100 06/30/19 11:51 06/30/19 11:51 06/30/19 11:51 06/30/19 11:51 06/30/19 11:51 Intake & Output 06/29/19 06/30/19 07/01/19 06:59 06:59 06:59 Intake Total 290 720 118 Output Total 250 600 Balance 40 120 118 Weight 96.8 kg 94.7 kg General appearance: PRESENT: no acute distress, well-developed, well-nourished Head exam: PRESENT: atraumatic, normocephalic Eye exam: PRESENT: conjunctiva pink, EOMI, PERRLA. ABSENT: scleral icterus Ear exam: PRESENT: normal external ear exam Mouth exam: PRESENT: moist, tongue midline Neck exam: PRESENT: full ROM. ABSENT: carotid bruit, JVD, lymphadenopathy, thyromegaly Respiratory exam: PRESENT: unlabored Cardiovascular exam: PRESENT: RRR. ABSENT: diastolic murmur, rubs, systolic murmur Pulses: PRESENT: normal dorsalis pedis pul, +2 pedal pulses bilateral Vascular exam: PRESENT: normal capillary refill GI/Abdominal exam: PRESENT: normal bowel sounds, soft. ABSENT: distended, guarding, mass, organolmegaly, rebound, tenderness Rectal exam: PRESENT: deferred Musculoskeletal exam: PRESENT: other - Bilateral lower extremities: No sensory deficits. Normal deep tendon reflexes. Hamstrings/quadriceps/hip flexion 4/5. Plantarflexion is dorsiflexion 4/5. Limited motion of the ankle. Significant pes planus deformity with hallux valgus deformity noted. Upgoing Babinski's. No tenderness to palpation throughout the lower extremity. Mild tenderness along the lumbosacral spine. Negative straight leg raise. Neurological exam: PRESENT: alert, awake, oriented to person, oriented to place, oriented to time, oriented to situation, CN II-XII grossly intact. ABSENT: motor sensory deficit Psychiatric exam: PRESENT: appropriate affect, normal mood. ABSENT: homicidal ideation, suicidal ideation Skin exam: PRESENT: dry, intact, warm. ABSENT: cyanosis, rash Results Laboratory Results: 06/30/19 04:13 06/30/19 04:13 06/30/19 06/30/19 04:13 04:13 WBC 4.7 RBC 4.69 Hgb 12.9 L Hct 37.6 L MCV 80 MCH 27.5 MCHC 34.3 RDW 16.9 H Plt Count 198 Seg Neutrophils % 43.2 Sodium 137.8 Potassium 4.3 Chloride 104 Carbon Dioxide 26 Anion Gap 8 BUN 14 Creatinine 1.05 Est GFR ( Amer) > 60 Glucose 101 Calcium 9.3 06/27/19 06/28/19 06/28/19 15:28 00:15 00:15 Creatine Kinase 104 CK-MB (CK-2) 1.10 Troponin I < 0.012 < 0.012 06/28/19 06/28/19 06/28/19 06:13 06:13 11:52 Creatine Kinase 103 127 CK-MB (CK-2) 1.21 Troponin I < 0.012 06/28/19 11:52 Creatine Kinase CK-MB (CK-2) 1.49 Troponin I < 0.012 Impressions: Chest X-Ray 06/27/19 15:08 IMPRESSION: Cardiomegaly without acute abnormality of the lungs in AP portable projection. Head CT 06/27/19 15:08 IMPRESSION: 1. No acute intracranial pathology. 2. 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 EVIDENCE OF ACUTE STROKE: NO. Foot X-Ray 06/27/19 15:11 IMPRESSION: Osteopenia. No acute displaced fracture or dislocation. Chronic fracture deformities of the left metatarsals. Left greater than right flatfoot deformities and midfoot arthrosis. Brain MRI with MRA 06/28/19 00:00 IMPRESSION: 1. Chronic brain changes. 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 No acute CVA detected. 2. Patent cerebral arteries. Potential 4 mm aneurysm along the proximal left posterior cerebral artery. Consider close clinical and surveillance imaging followup. Call report tasked to the [facility] team at the time of interpretation to be called within the next day or so. EVIDENCE OF ACUTE STROKE: NO. Head MRI 06/28/19 00:00 IMPRESSION: 1. Chronic brain changes. 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 No acute CVA detected. 2. Patent cerebral arteries. Potential 4 mm aneurysm along the proximal left posterior cerebral artery. Consider close clinical and surveillance imaging followup. Call report tasked to the [facility] team at the time of interpretation to be called within the next day or so. EVIDENCE OF ACUTE STROKE: NO. Lumbar Spine MRI 06/29/19 00:00 IMPRESSION: 1. 5 [id number] lumbar vertebral bodies. Transitional lumbosacral anatomy with L5 delineated using the iliolumbar ligaments. There is a rudimentary disc at S1-2. 2. Multilevel degenerative disc disease with resultant high-grade spinal canal stenosis at L4-5 and L5-S1 secondary to circumferential disc bulge. There is additional multilevel neural foraminal narrowing greatest at L4-5 on the left. 3. L4-5 Schmorl's node with associated bony edema. No other evidence of acute bony abnormality. Status: Image reviewed by me - I have reviewed patient's radiographs and MRI MRIs consistent with fairly significant spinal stenosis at L4-5 no evidence of acute abnormality. Bilateral lower extremities demonstrate pes planus deformity with metatarsal fractures which are chronic in nature. Assessment & Plan - Diagnosis (1) Spinal stenosis at L4-L5 level Plan: I have reviewed patient's MRI and radiographs. MRI does demonstrate fairly significant stenosis which may contribute to patient's current lower extremity weakness however there is no evidence of acute vertebral fracture or abnormality. Patient would likely be best served to follow-up as an outpatient for further work-up and physical therapy. He may also benefit from epidural in jections with pain management. As for the patient's bilateral foot deformities he has evidence of pes planus deformity which is likely chronic in nature. He also has evidence of chronic fracture deformities of the metatarsals which are not likely contributing to his weakness. Patient would likely benefit from outpatient set up for orthosis and possible reevaluation. At this point I do not feel he has any significant abnormality that is amendable to surgical treatment and may follow-up as an outpatient. (2) Ataxia Is this a current diagnosis for this admission?: Yes
[2019-06-30] MEDS: ATORVASTATIN CALCIUM 20 MG TABLET PO SCH (21:03)
[2019-06-30] MEDS: CARVEDILOL 6.25 MG TABLET PO SCH (21:03)
[2019-06-30] MEDS: CETIRIZINE 5 MG TABLET PO SCH (21:04)
[2019-07-01 05:49] LABS: ANION GAP 5 (5-19); BLOOD UREA NITROGEN 18 mg/dL (7-20); CALCIUM 9.1 mg/dL (8.4-10.2); CARBON DIOXIDE 27 mmol/L (22-30); CHLORIDE 104 mmol/L (98-107); GLUCOSE 101 mg/dL (75-110); POTASSIUM 4.3 mmol/L (3.6-5.0)
[2019-07-01] MEDS: LISINOPRIL 10 MG TABLET PO SCH (09:26)
[2019-07-01] MEDS: ALLOPURINOL 100 MG TABLET PO SCH (09:26)
[2019-07-01] MEDS: CLOPIDOGREL BISULFATE 75 MG TABLET PO SCH (09:26)
[2019-07-01] MEDS: ASPIRIN 81 MG TABLET, ENT COATED PO SCH (09:26)
[2019-07-01] MEDS: DOCUSATE SODIUM 100 MG CAPSULE PO SCH (09:26)
[2019-07-01] MEDS: AMLODIPINE BESYLATE 10 MG TABLET PO SCH (09:27)
[2019-07-01] MEDS: INSULIN LISPRO 100 UNIT/ML 3 ML VIAL SUBCUT SCH (09:28)
[2019-07-01 09:53] VITALS: BP 150/82
--- NOTE | 2019-07-01 10:33 | PDOC DISCHARGE SUMMARY ---
Impression - Admit/DC Date/PCP Admission Date/Primary Care Provider: 06/27/19 23:28 KAILYN BERNABE MD Discharge Date: 07/01/19 - Discharge Diagnosis (1) Ataxia Is this a current diagnosis for this admission?: Yes (2) Hypertension Is this a current diagnosis for this admission?: Yes (3) Hyperlipidemia Is this a current diagnosis for this admission?: Yes (4) Weakness Is this a current diagnosis for this admission?: Yes (5) Colorectal cancer Is this a current diagnosis for this admission?: Yes (6) Coronary artery disease Is this a current diagnosis for this admission?: Yes (7) Brain aneurysm Is this a current diagnosis for this admission?: Yes (8) Spinal stenosis at L4-L5 level Is this a current diagnosis for this admission?: Yes - Additional Information Discharge Diet: Diabetic Discharge Activity: Activity As Tolerated Referrals: SYLVAIN MESA MD [NO LOCAL MD] - 07/09/19 2:15 pm ( f/u with neuro sx f/u in offce 1 wk) KAILYN BERNABE MD [Primary Care Provider] - 07/08/19 9:00 am ARY STEPHENSON DO [ACTIVE STAFF] - 07/03/19 10:50 am Home Medications: Allopurinol [Zyloprim 100 mg Tablet] 100 mg PO DAILY 06/28/19 Amlodipine Besylate [Norvasc 10 mg Tablet] 10 mg PO DAILY 06/28/19 Aspirin [Adult Low Dose Aspirin EC] 81 mg PO DAILY 06/28/19 Atorvastatin Calcium [Lipitor 10 mg Tablet] 10 mg PO QHS 06/28/19 Carvedilol [Coreg] 6.25 mg PO QHS 06/28/19 Clopidogrel Bisulfate [Plavix] 75 mg PO DAILY 06/28/19 Docusate Sodium [Stool Softener] 100 mg PO DAILY 06/28/19 Famotidine [Pepcid 40 mg Tablet] 40 mg PO DAILY 06/28/19 Iron 325 mg PO BID 06/28/19 Levocetirizine Dihydrochloride [Xyzal] 5 mg PO QHS 06/28/19 Lisinopril [Prinivil 10 mg Tablet] 10 mg PO DAILY 06/28/19 [place]-3 Fatty Acids/Fish Oil [Fish Oil 1,000 mg Capsule] 1 cap PO BID 06/28/19 History of Present Illiness History of Present Illness: RUPINDER VELAZCO is a 89 year old male This is a 89-year-old male came to the emergency department with a chief compla int of weakness difficulty in walking and fall that occurred 3 days ago Patients live with his daughter and she stated that over the past 2 days patient started leaning to the left and there was difficulty with him to ambulatory and normally he does that Patient is ambulatory with the assistance with either walker or direct assistance with the family member 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 with a history of the coronary artery disease hypertension's hyperlipidemia Initial CT of the head and other blood work was stable decided to admit for further evaluations Patient's foot x-ray showed some chronic deformity but no acute fracture When I saw the patient is eating the breakfast denied any chest pain no short of breath no weakness Patient is CT of the head suggest old strokes but patient does not have any history of the stroke in the past patient not sure what was the stroke was happen At this point with this CT scan findings we will decided to admit for further evaluations Hospital Course Hospital Course: This is a 89-year-old male's present in the emergency department with the questionable strokes and a falling Initial CT scan suggest old strokes patient underwent for the MRI which is negative for any acute strokes MRI of the head suggest a small aneurysm in the posterior cerebral artery Also underwent for the MRI of the LS spine due to the frequent fall no weakness with suggest some mild to moderate stenosis seen by orthopedic surgery and suggested physical therapy and follow outpatient His other medical problem is all stable Very extensive discussions with the patient's daughter regarding the patient's current condition all test results and follow-up Since walk with the physical therapy with minimal assistance due to the blindness but other than that patient required to use a walker or cane and discussed with the daughter to fall precaution we will arrange the home health and physical therapy Follow outpatients neurology and neurosurgery Tolerating the aspirin Plavix and statin Physical Exam Vital Signs: Temp Pulse Resp BP Pulse Ox 98.1 F 64 16 150/82 H 98 07/01/19 09:51 07/01/19 09:51 07/01/19 09:51 07/01/19 09:51 07/01/19 09:51 Intake & Output 06/30/19 07/01/19 07/02/19 06:59 06:59 06:59 Intake Total 720 554 Output Total 600 400 Balance 120 154 Weight 94.7 kg 95.1 kg Results Laboratory Results: WBC 4.7 10^3/uL (4.0-10.5) 06/30/19 04:13 RBC 4.69 10^6/uL (4.35-5.55) 06/30/19 04:13 Hgb 12.9 g/dL (13.5-17.0) L 06/30/19 04:13 Hct 37.6 % (37.9-51.0) L 06/30/19 04:13 MCV 80 fl (80-97) 06/30/19 04:13 MCH 27.5 pg (27.0-33.4) 06/30/19 04:13 MCHC 34.3 g/dL (32.0-36.0) 06/30/19 04:13 RDW 16.9 % (11.5-14.0) H 06/30/19 04:13 Plt Count 198 10^3/uL (150-450) 06/30/19 04:13 Lymph % (Auto) 39.3 % (13-45) 06/30/19 04:13 [place] % (Auto) 13.8 % (3-13) H 06/30/19 04:13 Eos % (Auto) 2.9 % (0-6) 06/30/19 04:13 Baso % (Auto) 0.8 % (0-2) 06/30/19 04:13 Absolute Neuts (auto) 2.0 10^3/uL (1.7-8.2) 06/30/19 04:13 Absolute Lymphs (auto) 1.8 10^3/uL (0.5-4.7) 06/30/19 04:13 Absolute Monos (auto) 0.6 10^3/uL (0.1-1.4) 06/30/19 04:13 Absolute Eos (auto) 0.1 10^3/uL (0.0-0.6) 06/30/19 04:13 Absolute Basos (auto) 0.0 10^3/uL (0.0-0.2) 06/30/19 04:13 Seg Neutrophils % 43.2 % (42-78) 06/30/19 04:13 Sodium 136.1 mmol/L (137-145) L 07/01/19 04:36 Potassium 4.3 mmol/L (3.6-5.0) 07/01/19 04:36 Chloride 104 mmol/L (98-107) 07/01/19 04:36 Carbon Dioxide 27 mmol/L (22-30) 07/01/19 04:36 Anion Gap 5 (5-19) 07/01/19 04:36 BUN 18 mg/dL (7-20) 07/01/19 04:36 Creatinine 1.04 mg/dL (0.52-1.25) 07/01/19 04:36 Est GFR ( Amer) > 60 (>60) 07/01/19 04:36 Est GFR (MDRD) Non-Af > 60 (>60) 07/01/19 04:36 Glucose 101 mg/dL (75-110) 07/01/19 04:36 POC Glucose 105 mg/dL (70-110) 07/01/19 07:46 Calcium 9.1 mg/dL (8.4-10.2) 07/01/19 04:36 Total Bilirubin 0.5 mg/dL (0.2-1.3) 06/27/19 15:27 Direct Bilirubin 0.2 mg/dL (0.0-0.4) 06/27/19 15:27 Neonat Total Bilirubin Not Reportable 06/27/19 15:27 Neonat Direct Bilirubin Not Reportable 06/27/19 15:27 Neonat Indirect Bili Not Reportable 06/27/19 15:27 AST 19 U/L (17-59) 06/27/19 15:27 ALT 13 U/L (<50) 06/27/19 15:27 Alkaline Phosphatase 62 U/L (38-126) 06/27/19 15:27 Creatine Kinase 127 U/L (55-170) 06/28/19 11:52 CK-MB (CK-2) 1.49 ng/mL (<4.55) 06/28/19 11:52 Troponin I < 0.012 ng/mL 06/28/19 11:52 Total Protein 7.3 g/dL (6.3-8.2) 06/27/19 15:27 Albumin 4.4 g/dL (3.5-5.0) 06/27/19 15:27 Urine Color YELLOW 06/27/19 20:35 Urine Appearance CLEAR 06/27/19 20:35 Urine pH 5.0 (5.0-9.0) 06/27/19 20:35 Ur Specific [place] 1.020 06/27/19 20:35 Urine Protein 30 mg/dL (NEGATIVE) H 06/27/19 20:35 Urine Glucose (UA) NEGATIVE mg/dL (NEGATIVE) 06/27/19 20:35 Urine Ketones NEGATIVE mg/dL (NEGATIVE) 06/27/19 20:35 Urine Blood NEGATIVE (NEGATIVE) 06/27/19 20:35 Urine Nitrite NEGATIVE (NEGATIVE) 06/27/19 20:35 Urine Bilirubin NEGATIVE (NEGATIVE) 06/27/19 20:35 Urine Urobilinogen 2.0 mg/dL (<2.0) H 06/27/19 20:35 Ur Leukocyte Esterase NEGATIVE (NEGATIVE) 06/27/19 20:35 Urine WBC (Auto) 1 /HPF 06/27/19 20:35 Urine RBC (Auto) 1 /HPF 06/27/19 20:35 Squamous Epi Cells Auto 1 /HPF 06/27/19 20:35 Urine Mucus (Auto) MOD /LPF 06/27/19 20:35 Urine Ascorbic Acid NEGATIVE (NEGATIVE) 06/27/19 20:35 06/27/19 06/28/19 06/28/19 15:28 00:15 06:13 CK-MB (CK-2) 1.10 1.21 Troponin I < 0.012 < 0.012 < 0.012 06/28/19 11:52 CK-MB (CK-2) 1.49 Troponin I < 0.012 Impressions: Chest X-Ray 06/27/19 15:08 IMPRESSION: Cardiomegaly without acute abnormality of the lungs in AP portable projection. Head CT 06/27/19 15:08 IMPRESSION: 1. No acute intracranial pathology. 2. 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 EVIDENCE OF ACUTE STROKE: NO. Foot X-Ray 06/27/19 15:11 IMPRESSION: Osteopenia. No acute displaced fracture or dislocation. Chronic fracture deformities of the left metatarsals. Left greater than right flatfoot deformities and midfoot arthrosis. Brain MRI with MRA 06/28/19 00:00 IMPRESSION: 1. Chronic brain changes. 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 No acute CVA detected. 2. Patent cerebral arteries. Potential 4 mm aneurysm along the proximal left posterior cerebral artery. Consider close clinical and surveillance imaging followup. Call report tasked to the [facility] team at the time of interpretation to be called within the next day or so. EVIDENCE OF ACUTE STROKE: NO. Head MRI 06/28/19 00:00 IMPRESSION: 1. Chronic brain changes. 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 No acute CVA detected. 2. Patent cerebral arteries. Potential 4 mm aneurysm along the proximal left posterior cerebral artery. Consider close clinical and surveillance imaging followup. Call report tasked to the [facility] team at the time of interpretation to be called within the next day or so. EVIDENCE OF ACUTE STROKE: NO. Lumbar Spine MRI 06/29/19 00:00 IMPRESSION: 1. 5 [id number] lumbar vertebral bodies. Transitional lumbosacral anatomy with L5 delineated using the iliolumbar ligaments. There is a rudimentary disc at S1-2. 2. Multilevel degenerative disc disease with resultant high-grade spinal canal stenosis at L4-5 and L5-S1 secondary to circumferential disc bulge. There is additional multilevel neural foraminal narrowing greatest at L4-5 on the left. 3. L4-5 Schmorl's node with associated bony edema. No other evidence of acute bony abnormality. Plan Time Spent: Greater than 30 Minutes - Follow outpatients neurosurgery and Ortho for the stenosisBrain aneurysm Stroke Is this a Stroke Patient?: No Acute Heart Failure - Is this a Heart Failure Patient?: No
--- NOTE | 2019-07-03 11:14 | RADIOLOGY REPORT (SQ) ---
EXAM DESCRIPTION: CAROTID DOPPLER COMPLETED DATE/TIME: 06/29/2019 1:06 pm REASON FOR STUDY: cva D50.8 OTHER IRON DEFICIENCY ANEMIAS COMPARISON: None. TECHNIQUE: Grayscale ultrasound, Doppler velocity and spectra, and color Doppler images acquired of the extra-cranial carotid and vertebral arteries. Images stored on PACS. LIMITATIONS: None. FINDINGS: RIGHT CAROTID CCA Velocities: Within normal limits. ICA Velocities Peak systolic 95 cm/s. End diastolic 26 cm/s. Proximal ICA/CCA peak systolic ratio 1.9. Intimal thickening. Shallow calcified plaque. LEFT CAROTID CCA Velocities: Within normal limits. ICA Velocities Peak systolic 83 cm/s. End diastolic 26 cm/s. Proximal ICA/CCA peak systolic ratio 0.9. Shallow calcified plaque, intimal thickening. VERTEBRAL ARTERIES: Right vertebral artery flow is antegrade. The left is not seen. SUBCLAVIAN ARTERIES: No finding. OTHER: No other significant finding. IMPRESSION: No hemodynamically significant carotid stenosis. Left vertebral artery is not seen. COMMENT: Quality ID #[id number]: Velocity criteria are extrapolated from the diameter data as defined by t he Society of Radiologists in Ultrasound Consensus Conference. Radiology 2003: 229; 340-346. TECHNICAL DOCUMENTATION: JOB ID: [id number] [employer]- All Rights Reserved Reading location - IP/workstation name: [email or web address]
== END 2019-07-01 11:30 | disposition home or self-care (01) ==
LOC: ER 13:42 → EH 23:28 → 3N 06-28 13:41
PROVIDERS: ADMIT Family Medicine; ATTEND Family Medicine
DX: R27.0 Ataxia, unspecified (principal); I10 Essential (primary) hypertension; E78.5 Hyperlipidemia, unspecified; R53.1 Weakness; C19 Malignant neoplasm of rectosigmoid junction; I25.810 Atherosclerosis of coronary artery bypass graft(s) without angina pectoris; I67.1 Cerebral aneurysm, nonruptured; M48.061 Spinal stenosis, lumbar region without neurogenic claudication; R29.6 Repeated falls; M21.42 Flat foot [pes planus] (acquired), left foot; M21.41 Flat foot [pes planus] (acquired), right foot; M85.872 Other specified disorders of bone density and structure, left ankle and foot; M85.871 Other specified disorders of bone density and structure, right ankle and foot; H54.8 Legal blindness, as defined in USA; I49.3 Ventricular premature depolarization; I25.2 Old myocardial infarction; Z91.81 History of falling; Z79.82 Long term (current) use of aspirin; Z79.899 Other long term (current) drug therapy; Z79.02 Long term (current) use of antithrombotics/antiplatelets; Z95.1 Presence of aortocoronary bypass graft; Z87.891 Personal history of nicotine dependence; Z86.73 Personal history of transient ischemic attack (TIA), and cerebral infarction without residual deficits
CPT/HCPCS: 93005; 99284; 36415 ×4; 82553; 82962 ×4; 82550; 85025 ×2; 80048 ×2; 80053; 81001; 84484 ×2; 93880; 70551; 72148; 70544; 71045; 73630; 70450; 93010; 97530; 97110; 97116; 97162; 97535; 97166; G0378 ×5; A9270 ×27; J3490

== ENCOUNTER 2020-01-18 19:14 | Observation (INO) | payer MEDICARE ==
[2020-01-18 21:11] LABS: ABSOLUTE EOSINOPHILS # (AUTO) 0.1 10^3/uL (0.0-0.6); ABSOLUTE MONOCYTES (AUTO) 0.5 10^3/uL (0.1-1.4); BASOPHILS % (AUTO) 0.6 % (0-2); TOTAL CELLS COUNTED % (AUTO) 100 %
[2020-01-18 21:17] LABS: ALBUMIN 3.8 g/dL (3.5-5.0); ALKALINE PHOSPHATASE 56 U/L (38-126); ASPARTATE AMINO TRANSFERASE 18 U/L (17-59); BILIRUBIN,TOTAL 0.9 mg/dL (0.2-1.3); BLOOD UREA NITROGEN 12 mg/dL (7-20); CALCIUM 9.5 mg/dL (8.4-10.2); CREATINE KINASE 73 U/L (55-170); GLUCOSE 153 mg/dL (75-110); POTASSIUM 4.4 mmol/L (3.6-5.0); TOTAL PROTEIN 6.2 g/dL (6.3-8.2)
[2020-01-18 21:22] LABS: ABSOLUTE LYMPHOCYTES (AUTO) 1.4 10^3/uL (0.5-4.7); ABSOLUTE NEUT (AUTO) 4.8 10^3/uL (1.7-8.2); CARBON DIOXIDE 27 mmol/L (22-30); CHLORIDE 105 mmol/L (98-107); EOSINOPHILS % (AUTO) 1.4 % (0-6); HEMATOCRIT 37.6 % (37.9-51.0); HEMOGLOBIN 12.6 g/dL (13.5-17.0); LYMPHOCYTES % (AUTO) 20.7 % (13-45); MEAN CORPUSCULAR HEMOGLOBIN 27.6 pg (27.0-33.4); MEAN CORPUSCULAR HGB CONC 33.5 g/dL (32.0-36.0); MEAN CORPUSCULAR VOLUME 83 fl (80-97); MONOCYTES % (AUTO) 7.5 % (3-13); PLATELET COUNT 196 10^3/uL (150-450); RED BLOOD COUNT 4.56 10^6/uL (4.35-5.55); RED CELL DISTRIBUTION WIDTH 16.9 % (11.5-14.0); SEGMENTED NEUTROPHILS % (AUTO) 69.8 % (42-78); WHITE BLOOD COUNT 6.9 10^3/uL (4.0-10.5)
[2020-01-18 21:24] LABS: ANION GAP 2 (5-19)
--- NOTE | 2020-01-18 21:26 | ER Document Report ---
ED General - General Chief Complaint: Syncope Stated Complaint: NAUSEA/VOMITING TRAVEL OUTSIDE OF THE [place] IN LAST 30 DAYS: No - HPI Notes: 89-year-old male history of blindness secondary to glaucoma, hypertension, hyperlipidemia, colon cancer unknown treatment status, CAD with unknown procedure (stent? Valve? on Plavix) 2017, brain aneurysm, spinal stenosis, CHF presents with syncope. As per patient and daughter patient was somewhat tired this morning and did not want to get out of bed which was unusual for him and has had a mild dry cough of unknown chronicity (patient says he has had a cough for a day, daughter says he has had a cough for 5 years and has been unchanged). At approximately 7 PM patient was sitting down and then syncopized became unresponsive and started sweating which lasted for several minutes prior to EMS arrival. Patient says he was "just feeling lousy," but is unable to specify any particular symptoms. Patient had few episodes of vomiting immediately with this episode, has had none since. Patient now says he feels "great." Patient denies any chest pain, shortness of breath, headache, abdominal pain, diarrhea, constipation, melena, bright red blood per rectum, fever, productive cough, dysuria, urgency, back pain, weakness or numbness. Patient's daughter also says that patient has not complained of any of the symptoms. Patient daughter says patient has been quarantined and she has been very careful during the pandemic and has not had any known sick exposures. Patient's daughter gave patient's medications late and he had his morning medications at approximately 4 PM and his evening medications at approximately 7 PM just prior to symptom onset. Daughter thinks last stress test was probably in 2017. 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, Hx Hypercholesterolemia, Hx Hypertension Denies: Hx Atrial Fibrillation, Hx Congestive Heart Failure, Hx Peripheral Vascular Disease, Hx Heart Murmur Pulmonary Medical History: Neurological Medical History: Denies: Hx Cerebrovascular Accident, Hx Seizures, Hx Parkinson's Disease Endocrine Medical History: Denies: Hx Graves' Disease, Hx Hyperthyroidism, Hx Hypothyroidism Renal/ Medical History: Denies: Hx Benign Prostatic Hyperplasia, Hx End Stage Renal Disease, Hx Kidney Stones, Hx Peritoneal Dialysis Malignancy Medical History: Denies Hx Leukemia GI Medical History: Denies: Hx Crohn's Disease, Hx Gastroesophageal Reflux Disease, Hx Hiatal Hernia, Hx Irritable Bowel, Hx Liver Failure, Hx Pancreatitis, Hx Ulcer Musculoskeletal Medical History: Reports Hx Arthritis - Hands,gout, Denies Hx Fibromyalgia, Denies Hx Multiple Sclerosis, Denies Hx Muscular Dystrophy, Denies Hx Systemic Lupus Erythematosus Psychiatric Medical History: Denies: Hx Dementia, Hx Depression Traumatic Medical History: Denies: Hx Fractures Infectious Medical History: Denies: Hx HIV Past Surgical History: Reports: Hx Cardiac Surgery - bypass, Hx Coronary Artery Bypass Graft - triple bypass 2002, Hx Herniorrhaphy - x2. Denies: Hx Appendectomy, Hx Bowel Surgery, Hx Cholecystectomy, Hx Colostomy, Hx Gastric Bypass Surgery, Hx Pacemaker, Hx Tonsillectomy - Immunizations Hx Diphtheria, Pertussis, Tetanus Vaccination: No Hx Pneumococcal Vaccination: 06/24/13 Review of Systems - Review of Systems Notes: REVIEW OF SYSTEMS: CONSTITUTIONAL : Denies fever, chills, or sweats. EENT: Denies recent cold/sinus symptoms, denies throat pain CARDIOVASCULAR: Denies chest pain, FIDE RESPIRATORY: Denies cough, denies shortness of breath. GASTROINTESTINAL: Denies abdominal pain, +nausea/vomiting. GENITOURINARY: Denies difficulty urinating, painful urination. MUSCULOSKELETAL: Denies neck pain, back pain. SKIN: Denies rash or skin lesions. HEMATOLOGIC : Denies easy bruising or bleeding. LYMPHATIC: Denies swollen, enlarged glands. NEUROLOGICAL: Denies headache, denies change in gait. PSYCHIATRIC: Denies anxiety or stress or depression. Physical Exam - Vital signs Vitals: Pulse Ox 100 01/18/20 19:27 - Notes Notes: PHYSICAL EXAMINATION: GENERAL: Well-appearing, well-nourished, well cared for talkative pleasant elderly man sitting up in stretcher in no acute distress. HEAD: Atraumatic, normocephalic. ENT: nares patent, moist mucous membranes. NECK: Normal range of motion, supple without lymphadenopathy LUNGS: Breath sounds clear to auscultation bilaterally and equal. No wheezes rales or rhonchi. Normal respiratory rate and effort HEART: Regular rate and rhythm without murmurs ABDOMEN: Soft, nontender, no guarding, no masses. Normal external male genitalia. BACK: No midline tenderness or deformity, no CVA tenderness, no decubitus ulcers EXTREMITIES: Normal range of motion, no pitting or edema. No cyanosis. NEUROLOGICAL: Awake, alert, conversing appropriately, moves all extremities spontaneously. PSYCH: Normal mood, normal affect. SKIN: Warm, Dry, normal turgor, no rashes or lesions noted. Course - Re-evaluation Re-evalutation: 01/18/20 22:12 Episode of syncope with brief vomiting that has since resolved. Patient vaguely fatigued today and possible new cough. Given vague symptoms differential is wide including ACS, symptomatic anemia/occult bleed, electrolyte abnormalities, pneumonia, COVID-19, UTI. Less likely aneurysmal bleed as patient appears to be reliable enough to report symptoms of headache, but given history of brain aneurysm and vomiting will obtain CT head to rule out. Unlikely PE, will reassess need to rule out if clinical picture should change or no other cause of patient's syncope found. Patient very well-appearing and currently asymptomatic. Patient's EKG shows abnormal T wave inversions and no prior available, will obtain repeat EKG to ensure there are no dynamic changes. 01/19/20 01:13 Patient continues to feel well since episode, has been asymptomatic since arrival to the ED. Has been stable on monitor without any abnormal events. No emergent findings in patient's initial work-up. CT head and chest x-ray negative. Awaiting urine. I discussed patient's presentation with his primary doctor Dr. Sarah who would like patient to follow-up with him in the office today if his repeat troponin is negative. Will obtain 6-hour repeat troponin and monitor patient in ED until then. Discussed plan with patient and patient's daughter who are in agreement. They had no other concerns and would like to follow-up outpatient. 01/19/20 01:27 Patient remains unchanged and second troponin negative but repeat EKG shows more prominent lateral T wave inversions than initial and given no baseline EKG and patient's age and risk factors I discussed again with patient's primary Dr. Sarah who has accepted patient to [facility]. Will give patient aspirin and continue to monitor. - Vital Signs Vital signs: Temp Pulse Resp BP Pulse Ox 97.5 F 11 L 170/104 H 99 01/18/20 20:30 01/19/20 09:01 01/19/20 09:00 01/19/20 09:01 - Laboratory Result Diagrams: 01/18/20 20:10 01/19/20 01:55 Laboratory results interpreted by me: 01/18/20 01/18/20 01/19/20 20:10 20:10 00:35 Hgb 12.6 L Hct 37.6 L RDW 16.9 H Sodium 134.1 L Anion Gap 2 L Est GFR (MDRD) Non-Af 58 L Glucose 153 H Total Protein 6.2 L Urine Urobilinogen 2.0 H - EKG Interpretation by Me Additional EKG results interpreted by me: 01/18/20 21:26 Heart rate 60, sinus rhythm, no significant ST elevations or depressions, diffuse T wave inversions, no prior EKGs available, QTc 400 01/19/20 01:30 Repeat EKG, heart rate 61, no significant ST elevations or depressions, T wave inversions more pronounced than previous EKG Discharge - Discharge Clinical Impression: Abnormal EKG Syncope Qualifiers: Syncope type: unspecified Qualified Code(s): R55 - Syncope and collapse Disposition: ADMITTED INPATIENT Admitting Provider: [facility] Unit Admitted: [facility]
[2020-01-18 21:29] LABS: CREATINE KINASE MB 0.75 ng/mL (<4.55); TROPONIN I < 0.012 ng/mL
[2020-01-18 22:33] LABS: PHOSPHORUS 3.8 mg/dL (2.5-4.5)
--- NOTE | 2020-01-18 23:00 | RADIOLOGY REPORT (SQ) ---
EXAM DESCRIPTION: XR CHEST 1 VIEW COMPLETED DATE/TME: 01/18/2020 21:50 CLINICAL HISTORY: 89 years, Male, syncope COMPARISON: Multiple priors, most recent from 06/27/2019 NUMBER OF VIEWS: One TECHNIQUE: Single frontal view of the chest was obtained portably LIMITATIONS: None. FINDINGS: Status post median sternotomy. Cardiac and mediastinal contours are stable. Lungs are clear. No pleural effusion or pneumothorax. IMPRESSION: No acute disease. copyright 2010 [employer]- All Rights Reserved
--- NOTE | 2020-01-18 23:22 | RADIOLOGY REPORT (SQ) ---
CT HEAD WITHOUT IV CONTRAST HISTORY: Vomiting. History of cerebral aneurysm. COMPARISON: 06/28/2019 TECHNIQUE: CT scan of the brain was performed without IV contrast. This exam was performed according to our departmental dose-optimization program, which includes automated exposure control, adjustment of the mA and/or kV according to patient size and/or use of iterative reconstruction technique. FINDINGS: There are scattered areas of hypoattenuation within the periventricular white matter, which likely represent chronic microvascular ischemia. Stable encephalomalacia in the bilateral occipital lobes. No evidence of acute infarction, intracranial hemorrhage, extra-axial fluid collection, or midline shift. No air-fluid levels are seen in the paranasal sinuses to suggest acute sinusitis. No depressed skull fracture. IMPRESSION: 1. No acute intracranial findings. 2. Senescent changes with chronic microvascular ischemia.
[2020-01-19 01:00] LABS: APPEARANCE,URINE SLIGHTLY-CLOUDY; BILIRUBIN,URINE NEGATIVE (NEGATIVE); COLOR,URINE YELLOW; GLUCOSE, URINE NEGATIVE (NEGATIVE); KETONES,URINE NEGATIVE (NEGATIVE); PROTEIN,URINE NEGATIVE (NEGATIVE); URINE SPECIFIC GRAVITY 1.015
[2020-01-19] MEDS ORDERED: ASPIRIN 81 MG TABLET, CHEWABLE PO ONE (01:29)
[2020-01-19] MEDS ORDERED: ACETAMINOPHEN 325 MG TABLET PO PRN (01:32)
[2020-01-19] MEDS ORDERED: GLUCAGON,HUMAN RECOMB 1 MG INJ IM PRN ×2 (01:38→01:39)
[2020-01-19] MEDS ORDERED: DEXTROSE 40% GEL 15 GM TUBE PO PRN ×4 (01:38→01:39)
[2020-01-19] MEDS ORDERED: DEXTROSE 50%-WATER 25 GM/50 ML DISP.SYRIN IV PRN ×4 (01:38→01:39)
[2020-01-19 02:21] LABS: ANION GAP 7 (5-19); BLOOD UREA NITROGEN 14 mg/dL (7-20); CALCIUM 9.5 mg/dL (8.4-10.2); CARBON DIOXIDE 26 mmol/L (22-30); CHLORIDE 105 mmol/L (98-107); CREATINE KINASE 70 U/L (55-170); GLUCOSE 108 mg/dL (75-110); POTASSIUM 4.4 mmol/L (3.6-5.0)
[2020-01-19 02:33] LABS: CREATINE KINASE MB 0.82 ng/mL (<4.55)
[2020-01-19 02:54] LABS: TROPONIN I < 0.012 ng/mL
[2020-01-19] MEDS: INSULIN LISPRO 100 UNIT/ML 3 ML VIAL SUBCUT SCH ×4 (08:30→22:33)
[2020-01-19 09:01] LABS: CREATINE KINASE MB 0.77 ng/mL (<4.55)
[2020-01-19 09:07] LABS: TROPONIN I < 0.012 ng/mL
[2020-01-19] MEDS: ENOXAPARIN SODIUM INJ 40 MG/0.4 ML DISP.SYRIN SUBCUT SCH (10:07)
[2020-01-19] MEDS: FAMOTIDINE 20 MG TABLET PO SCH ×2 (10:07→22:38)
--- NOTE | 2020-01-19 10:09 | EKG REPORT ---
SEVERITY:- ABNORMAL ECG - SINUS RHYTHM LVH WITH SECONDARY REPOLARIZATION ABNORMALITY PROBABLE INFERIOR INFARCT, AGE INDETERMINATE : Confirmed by: Marielena Ward MD 19-Jan-2020 10:07:58
--- NOTE | 2020-01-19 10:09 | EKG REPORT ---
SEVERITY:- ABNORMAL ECG - SINUS RHYTHM ABNORMAL T, CONSIDER ISCHEMIA, LATERAL LEADS : Confirmed by: Marielena Ward MD 19-Jan-2020 10:07:53
--- NOTE | 2020-01-19 10:43 | PDOC H&P ---
History of Present Illness Admission Date/PCP: 01/19/20 01:32 KAILYN BERNABE MD Patient complains of: Syncopal episode weakness and tired History of Present Illness: RUPINDER VELAZCO is a 89 year old male This is a 89-year-old male's with a history of the coronary artery disease currently see Dr. Tam as an outpatient history of the hypertension hyperlipidemia history of the stroke in the past and history of the small brain aneurysm in the past colon cancer and legally blindCurrently lives with his daughter brought to the emergency department because the patient was not doing well this morning feeling weak and tired and according to the daughter he is not in usual state In the emergency department patient's initial CT of the head was negative patient's blood work is all stable except patient EKG some T wave changes repeat cardiac enzymes x3 is negative and ER physician asked to admit because of the some EKG change When I saw the patient's denied any chest pain no short of breath patients feel fine when I ask Patients have a some cough but mostly dry cough I think coming from the lisinopril patient does not have any COVID-like symptoms not contact with any COVID Patient's COVID test is pending Patient's otherwise doing well decided to admit in the hospital to further cardiac evaluations Past Medical History Cardiac Medical History: Reports: Coronary Artery Disease, 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, Hyperlipidema, Hypertension Denies: Atrial Fibrillation, Congestive Heart Failure, Peripheral Vascular Disease, Heart Murmur Pulmonary Medical History: Neurological Medical History: Denies: Seizures Endocrine Medical History: Reports: Diabetes Mellitus Type 2 Denies: Hyperthyroidism, Hypothyroidism Renal/ Medical History: Denies: End Stage Renal Disease Malignancy Medical History: Denies: Leukemia GI Medical History: Denies: Crohn's Disease, Gastroesophageal Reflux Disease, Hiatal Hernia Musculoskeltal Medical History: Reports: Arthritis - Hands,gout Denies: Fibromyalgia Psychiatric Medical History: Denies: Dementia, Depression Hematology: Reports: Anemia - hx of Denies: Hemophilia, Sickle Cell Disease Infectious Medical History: Denies: HIV Past Surgical History Past Surgical History: Reports: Coronary Artery Bypass Graft - triple bypass 2002, Herniorrhaphy - x2 Denies: Appendectomy, Cholecystectomy, Colostomy, Gastric Bypass Surgery, Pacemaker, Tonsillectomy Social History Information Source: Patient, Relative Smoking Status: Never Smoker Electronic Cigarette use?: No Frequency of Alcohol Use: None Hx Recreational Drug Use: No Drugs: None Hx Prescription Drug Abuse: No Family History Family History: Reviewed & Not Pertinent Parental Family History Reviewed: Yes Children Family History Reviewed: Yes Sibling(s) Family History Reviewed.: Yes Medication/Allergy Home Medications: Allopurinol [Zyloprim 100 mg Tablet] 100 mg PO DAILY 06/28/19 Amlodipine Besylate [Norvasc 10 mg Tablet] 10 mg PO DAILY 06/28/19 Aspirin [Adult Low Dose Aspirin EC] 81 mg PO QAM 06/28/19 Atorvastatin Calcium [Lipitor 10 mg Tablet] 40 mg PO QHS 06/28/19 Carvedilol [Coreg] 6.25 mg PO QHS 06/28/19 Clopidogrel Bisulfate [Plavix] 75 mg PO DAILY 06/28/19 Docusate Sodium [Stool Softener] 100 mg PO DAILY 06/28/19 Famotidine [Pepcid 40 mg Tablet] 40 mg PO DAILY 06/28/19 Iron 325 mg PO QHS 06/28/19 Levocetirizine Dihydrochloride [Xyzal] 5 mg PO QHS 06/28/19 Lisinopril [Prinivil 10 mg Tablet] 10 mg PO DAILY 06/28/19 Furosemide [Lasix 20 mg Tablet] 20 mg PO DAILY 01/19/20 Allergies/Adverse Reactions: No Known Allergies Allergy (Verified 01/18/20 20:41) Review of Systems Constitutional: ABSENT: chills, fever(s), headache(s), weight gain, weight loss Eyes: ABSENT: visual disturbances Ears: ABSENT: hearing changes Cardiovascular: ABSENT: chest pain, dyspnea on exertion, edema, orthropnea, palpitations Respiratory: ABSENT: cough, hemoptysis Gastrointestinal: ABSENT: abdominal pain, constipation, diarrhea, hematemesis, hematochezia, nausea, vomiting Genitourinary: ABSENT: dysuria, hematuria Musculoskeletal: ABSENT: joint swelling Integumentary: ABSENT: rash, wounds Neurological: ABSENT: abnormal gait, abnormal speech, confusion, dizziness, focal weakness, syncope Psychiatric: ABSENT: anxiety, depression, homidical ideation, suicidal ideation Endocrine: ABSENT: cold intolerance, heat intolerance, menstrual abnormalities, polydipsia, polyuria Hematologic/Lymphatic: ABSENT: easy bleeding, easy bruising, lymphadenopathy Physical Exam Vital Signs: Temp Pulse Resp BP Pulse Ox 97.5 F 11 L 170/104 H 99 01/18/20 20:30 01/19/20 09:01 01/19/20 09:00 01/19/20 09:01 Intake & Output 01/18/20 01/19/20 01/20/20 06:59 06:59 06:59 Intake Total 250 Balance 250 Weight 87.8 kg Physical Exam: Patient is legally blind General appearance: PRESENT: no acute distress, well-developed, well-nourished Head exam: PRESENT: atraumatic, normocephalic Eye exam: PRESENT: conjunctiva pink, EOMI, PERRLA. ABSENT: scleral icterus Ear exam: PRESENT: normal external ear exam Mouth exam: PRESENT: moist, tongue midline Neck exam: PRESENT: full ROM. ABSENT: carotid bruit, JVD, lymphadenopathy, thyromegaly Respiratory exam: PRESENT: clear to auscultation roxana Cardiovascular exam: PRESENT: RRR. ABSENT: diastolic murmur, rubs, systolic murmur Pulses: PRESENT: normal dorsalis pedis pul, +2 pedal pulses bilateral Vascular exam: PRESENT: normal capillary refill GI/Abdominal exam: PRESENT: normal bowel sounds, soft. ABSENT: distended, guarding, mass, organolmegaly, rebound, tenderness Rectal exam: PRESENT: deferred Neurological exam: PRESENT: alert, awake, oriented to person, oriented to place, oriented to time, oriented to situation, CN II-XII grossly intact. ABSENT: motor sensory deficit Psychiatric exam: PRESENT: appropriate affect, normal mood. ABSENT: homicidal ideation, suicidal ideation Skin exam: PRESENT: dry, intact, warm. ABSENT: cyanosis, rash Results Laboratory Results: 01/18/20 20:10 01/19/20 01:55 01/18/20 01/18/20 01/18/20 20:10 20:10 20:10 WBC 6.9 RBC 4.56 Hgb 12.6 L Hct 37.6 L MCV 83 MCH 27.6 MCHC 33.5 RDW 16.9 H Plt Count 196 Seg Neutrophils % 69.8 Sodium 134.1 L Potassium 4.4 Chloride 105 Carbon Dioxide 27 Anion Gap 2 L BUN 12 Creatinine 1.18 Est GFR ( Amer) > 60 Glucose 153 H Calcium 9.5 Phosphorus 3.8 Magnesium 2.2 Total Bilirubin 0.9 AST 18 Alkaline Phosphatase 56 Total Protein 6.2 L Albumin 3.8 Urine Color Urine Appearance Urine pH Ur Specific [place] Urine Protein Urine Glucose (UA) Urine Ketones Urine Blood Urine RBC (Auto) 01/19/20 01/19/20 00:35 01:55 WBC RBC Hgb Hct MCV MCH MCHC RDW Plt Count Seg Neutrophils % Sodium 137.6 Potassium 4.4 Chloride 105 Carbon Dioxide 26 Anion Gap 7 BUN 14 Creatinine 1.03 Est GFR ( Amer) > 60 Glucose 108 Calcium 9.5 Phosphorus Magnesium Total Bilirubin AST Alkaline Phosphatase Total Protein Albumin Urine Color YELLOW Urine Appearance SLIGHTLY-CLOUDY Urine pH 5.0 Ur Specific [place] 1.015 Urine Protein NEGATIVE Urine Glucose (UA) NEGATIVE Urine Ketones NEGATIVE Urine Blood NEGATIVE Urine RBC (Auto) 2 01/18/20 01/18/20 01/18/20 20:10 20:10 20:10 Creatine Kinase 73 CK-MB (CK-2) 0.75 Troponin I < 0.012 NT-Pro-B Natriuret Pep 336 01/19/20 01/19/20 01/19/20 00:10 01:55 01:55 Creatine Kinase 70 CK-MB (CK-2) 0.82 Troponin I < 0.012 < 0.012 NT-Pro-B Natriuret Pep 01/19/20 01/19/20 08:01 08:01 Creatine Kinase 67 CK-MB (CK-2) 0.77 Troponin I < 0.012 NT-Pro-B Natriuret Pep Impressions: Head CT 01/18/20 00:00 IMPRESSION: 1. No acute intracranial findings. 2. Senescent changes with chronic microvascular ischemia. Chest X-Ray 01/18/20 21:50 IMPRESSION: No acute disease. copyright 2011 [employer]- All Rights Reserved Assessment & Plan - Diagnosis (1) Abnormal EKG Is this a current diagnosis for this admission?: Yes Plan: Will discuss with the cardiology Dr. Tam (2) Syncope Qualifiers: Syncope type: unspecified Qualified Code(s): R55 - Syncope and collapse Is this a current diagnosis for this admission?: Yes Plan: Patient recently have MRI carotid Doppler done which here not sure about the syncopal episode not clear history is present we will continue to monitor (3) Brain aneurysm Is this a current diagnosis for this admission?: Yes Plan: Patient's follow outpatients neurosurgery (4) Colorectal cancer Is this a current diagnosis for this admission?: Yes Plan: Currently all stable patients follow outpatient oncology (5) Coronary artery disease Qualifiers: Coronary Disease-Associated Artery/Lesion type: unspecified vessel or lesion type Is this a current diagnosis for this admission?: Yes Plan: We consulted cardiology patient's repeat cardiac enzyme is all negative (6) Hyperlipidemia Qualifiers: Hyperlipidemia type: unspecified Is this a current diagnosis for this admission?: Yes (7) Hypertension Qualifiers: Hypertension type: essential hypertension Is this a current diagnosis for this admission?: Yes (8) Spinal stenosis at L4-L5 level Is this a current diagnosis for this admission?: Yes (9) Type 2 diabetes mellitus Qualifiers: Diabetes mellitus terminologist insulin use: without terminologist use Is this a current diagnosis for this admission?: Yes Plan: Continues a sliding scale - Time Time Spent: 50 to 70 Minutes Medications reviewed and adjusted accordingly: Yes Anticipated Discharge Disposition: Home with Home Health Anticipated Discharge: Other - Inpatient Certification Based on my medical assessment, after consideration of the patient's comorbidities, presenting symptoms, or acuity I expect that the services needed warrant INPATIENT care.: Yes I certify that my determination is in accordance with my understanding of Medicare's requirements for reasonable and necessary INPATIENT services [42 CFR 412.3e].: Yes Medical Necessity: Significant Comorbidiites Make Outpatient Treatment Too Risky, Need Close Monitoring Due to Risk of Patient Decompensation Post Hospital Care: D/C Quotation Checker Documentation - Plan Summary Plan Summary: Admit the patient in IMCU Discontinues the lisinopril because of the dry cough start the patient on a losartan Follow-up with cardiology
[2020-01-19 15:38] LABS: CREATINE KINASE MB 0.8 ng/mL (<4.55); TROPONIN I 0.012 ng/mL
[2020-01-19 15:59] LABS: FREE T3 2.39 pg/mL (2.77-5.27); FREE T4 (FREE THYROXINE) 0.74 ng/dL (0.78-2.19)
[2020-01-19 16:13] LABS: THYROID STIMULATING HORMONE 2.84 uIU/mL (0.47-4.68)
--- NOTE | 2020-01-19 21:30 | PDOC CONSULTATION ---
Consultation-Blank Consultation: CARDIOLOGY CONSULTATION by Dr. Marielena Ward on 01/19/2020. Patient seen at 2:30 PM. 60 minutes spent with patient more than 50% of time spent in direct patient care. REASON FOR CONSULTATION: Abnormal EKG. CONSULT REQUESTING PHYSICIAN: Dr. Sarah. HISTORY OF present ILLNESS: Patient is an 89-year-old Afro-[place] male with a history of hypertension, coronary artery disease, who as per the patient's daughter was brought in because of the patient not acting right. He seems to be withdrawn and not his usual self. On questioning the patient who is legally blind states that she has no chest pain discomfort. There is no shortness of breath. There is no palpitations or syncope or near syncope. There is no focal weaknesses. He has no fever or sore throat. He is awaiting his COVID testing results. The patient's EKG shows T wave inversions suggestive of lateral wall ischemia but the patient's cardiac enzymes have been negative. The patient also has mild dementia and is very forgetful and is a poor historian. 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, Hyperlipidema, Hypertension Denies: Atrial Fibrillation, Congestive Heart Failure, Peripheral Vascular Disease, Heart Murmur Pulmonary Medical History: Neurological Medical History: Denies: Seizures Endocrine Medical History: Reports: Diabetes Mellitus Type 2 Denies: Hyperthyroidism, Hypothyroidism Renal/ Medical History: Denies: End Stage Renal Disease Malignancy Medical History: Denies: Leukemia GI Medical History: Denies: Crohn's Disease, Gastroesophageal Reflux Disease, Hiatal Hernia Musculoskeltal Medical History: Reports: Arthritis - Hands,gout Denies: Fibromyalgia Psychiatric Medical History: Denies: Dementia, Depression Hematology: Reports: Anemia - hx of Denies: Hemophilia, Sickle Cell Disease Infectious Medical History: Denies: HIV Past Surgical History Past Surgical History: Reports: Coronary Artery Bypass Graft - triple bypass 2002, Herniorrhaphy - x2 Denies: Appendectomy, Cholecystectomy, Colostomy, Gastric Bypass Surgery, Pacemaker, Tonsillectomy Social History Information Source: Patient, Relative Smoking Status: Never Smoker Electronic Cigarette use?: No Frequency of Alcohol Use: None Hx Recreational Drug Use: No Drugs: None Hx Prescription Drug Abuse: No Family History Family History: Reviewed & Not Pertinent Parental Family History Reviewed: Yes Children Family History Reviewed: Yes Sibling(s) Family History Reviewed.: Yes Medication/Allergy Home Medications: Allopurinol [Zyloprim 100 mg Tablet] 100 mg PO DAILY 06/28/19 Amlodipine Besylate [Norvasc 10 mg Tablet] 10 mg PO DAILY 06/28/19 Aspirin [Adult Low Dose Aspirin EC] 81 mg PO QAM 06/28/19 Atorvastatin Calcium [Lipitor 10 mg Tablet] 40 mg PO QHS 06/28/19 Carvedilol [Coreg] 6.25 mg PO QHS 06/28/19 Clopidogrel Bisulfate [Plavix] 75 mg PO DAILY 06/28/19 Docusate Sodium [Stool Softener] 100 mg PO DAILY 06/28/19 Famotidine [Pepcid 40 mg Tablet] 40 mg PO DAILY 06/28/19 Iron 325 mg PO QHS 06/28/19 Levocetirizine Dihydrochloride [Xyzal] 5 mg PO QHS 06/28/19 Lisinopril [Prinivil 10 mg Tablet] 10 mg PO DAILY 06/28/19 Furosemide [Lasix 20 mg Tablet] 20 mg PO DAILY 01/19/20 Allergies/Adverse Reactions: No Known Allergies Allergy (Verified 01/18/20 20:41) Current Medications Generic Name Dose Route Start Last Admin Trade Name Freq PRN Reason Stop Dose Admin Acetaminophen 650 mg 01/19/20 01:32 Tylenol 325 Mg Tablet PO 02/18/20 01:31 Q4HP PRN FOR PAIN OR TEMP Allopurinol 100 mg 01/20/20 10:00 Zyloprim 100 Mg Tablet PO 02/19/20 09:59 DAILY [facility] Amlodipine Besylate 10 mg 01/20/20 10:00 Norvasc 10 Mg Tablet PO 02/19/20 09:59 DAILY [facility] Aspirin 81 mg 01/20/20 08:00 Ecotrin 81 Mg Ec Tablet PO 02/19/20 07:59 QAM [facility] Atorvastatin Calcium 40 mg 01/19/20 22:00 01/19/20 22:38 Lipitor 10 Mg Tablet PO 02/18/20 21:59 40 mg QHS [facility] Administration Carvedilol 6.25 mg 01/19/20 22:00 01/19/20 22:38 Coreg 6.25 Mg Tablet PO 02/18/20 21:59 6.25 mg QHS [facility] Administration Cetirizine HCl 5 mg 01/19/20 22:00 01/19/20 22:38 Zyrtec 5 Mg Tablet PO 02/18/20 21:59 5 mg QHS [facility] Administration Clopidogrel Bisulfate 75 mg 01/20/20 10:00 Plavix 75 Mg Tablet PO 02/19/20 09:59 DAILY [facility] Dextrose 12.5 gm 01/19/20 01:39 Dextrose Inj 50% Syringe (25 Gm/50 Ml) IV 02/18/20 01:38 PRN PRN FOR BG 50-69 IN ALERT PATIENT Protocol Dextrose 25 gm 01/19/20 01:39 Dextrose Inj 50% Syringe (25 Gm/50 Ml) IV 02/18/20 01:38 PRN PRN PER PROTOCOL Protocol Docusate Sodium 100 mg 01/20/20 10:00 Colace 100 Mg Capsule PO 02/19/20 09:59 DAILY [facility] Enoxaparin Sodium 40 mg 01/19/20 10:00 01/19/20 10:07 Lovenox Inj 40 Mg/0.4 Ml Disp.Syrin SUBCUT 02/18/20 09:59 40 mg DAILY [facility] Administration Famotidine 20 mg 01/19/20 10:00 01/19/20 22:38 Pepcid 20 Mg Tablet PO 02/18/20 09:59 20 mg Q12 [facility] Administration Furosemide 20 mg 01/20/20 10:00 Lasix 20 Mg Tablet PO 02/19/20 09:59 DAILY [facility] Glucagon 1 mg 01/19/20 01:39 Glucagen Inj 1 Mg Vial IM 02/18/20 01:38 PRN PRN Evaluate for BG < 70 Protocol Glucose 15 gm 01/19/20 01:39 Glutose 40% Gel 15 Gm Tube PO 02/18/20 01:38 PRN PRN FOR BG 50-69 IN ALERT PATIENT Protocol Glucose 30 gm 01/19/20 01:39 Glutose 40% Gel 15 Gm Tube PO 02/18/20 01:38 PRN PRN FOR BG < 50 IN ALERT PATIENT Protocol Insulin Human Lispro 0 - 12 unit 01/19/20 08:00 01/19/20 22:33 Humalog Insulin 100 Unit/1 Ml 3 Ml Vial SUBCUT 02/18/20 07:59 Not Given ACHS [facility] Protocol Losartan Potassium 50 mg 01/20/20 10:00 Cozaar 50 Mg Tablet PO 02/19/20 09:59 DAILY [facility] Discontinued Medications Generic Name Dose Route Start Last Admin Trade Name Vanq PRN Reason Stop Dose Admin Aspirin 324 mg 01/19/20 01:29 01/19/20 01:47 Aspirin 81 Mg Chewable Tablet PO 01/19/20 01:30 324 mg NOW ONE Administration Lisinopril 10 mg 01/20/20 10:00 Prinivil 10 Mg Tablet PO 02/19/20 09:59 DAILY [facility] Review of Systems Constitutional: ABSENT: chills, fever(s), headache(s), weight gain, weight loss Eyes: ABSENT: visual disturbances Ears: ABSENT: hearing changes Cardiovascular: ABSENT: chest pain, dyspnea on exertion, edema, orthropnea, p alpitations Respiratory: ABSENT: cough, hemoptysis Gastrointestinal: ABSENT: abdominal pain, constipation, diarrhea, hematemesis, hematochezia, nausea, vomiting Genitourinary: ABSENT: dysuria, hematuria Musculoskeletal: ABSENT: joint swelling Integumentary: ABSENT: rash, wounds Neurological: ABSENT: abnormal gait, abnormal speech, confusion, dizziness, focal weakness, syncope Psychiatric: ABSENT: anxiety, depression, homidical ideation, suicidal ideation Endocrine: ABSENT: cold intolerance, heat intolerance, menstrual abnormalities, polydipsia, polyuria Hematologic/Lymphatic: ABSENT: easy bleeding, easy bruising, lymphadenopathy PHYSICAL EXAMINATION: The patient is well-built for his age. In no acute distress. Selected Entries 01/19/20 01/19/20 01/19/20 11:34 12:00 15:01 Heart Rate ( 64 Monitors) Respiratory 17 15 Rate Blood Pressure 135/67 H 127/69 H Blood Pressure 89 88 Mean O2 Sat by Pulse 98 100 Oximetry Fraction of 21 Inspired Oxygen (FIO2) 01/19/20 16:00 Heart Rate ( 62 Monitors) Respiratory Rate Blood Pressure Blood Pressure Mean O2 Sat by Pulse Oximetry Fraction of Inspired Oxygen (FIO2) HEAD: Is atraumatic normocephalic. EYES: Pupils are equal round regular reactive to light and accommodation. Extraocular movements are normal. There is no conjunctival pallor. There is no scleral icterus. EARS: Tympanic membranes are intact. External auditory canals are clear. NOSE: There is no deviated nasal septum straight there is no inflammation nasal mucous membrane MOUTH: Mucous membranes of mouth are moist tongue is moist. THROAT: There is no redness of the oropharynx. There is no exudates. SKIN: There is no skin rashes there is no petechia or ecchymosis. NECK: Is supple. There is no JVD. Carotids are equal there is no bruit. There is no lymphadenopathy. There is no goiter. Trachea central. LUNGS: Is clear to auscultation percussion without any rhonchi rales or wheezing. HEART: S1-S2 is heard. There is no S3 gallop. There is no S4 gallop. There is systolic murmur left sternal border and the apex there is no rub. ABDOMEN: Soft. Nontender. There is no hepatosplenomegaly. Bowel sounds are well heard. EXTREMITIES: Femorals are diminished. There is no femoral bruits. Leg pulses are diminished. There is no DVT or cellulitis. There is no pedal edema. There is no cyanosis or clubbing. COMPOSITION ROOFER: The patient is conscious slightly confused and forgetful. There is no focal deficits. PSYCHIATRIC: The patient does not appear to be agitated or anxious. Labs- Entire Visit 01/18/20 01/18/20 01/18/20 20:10 20:10 20:10 WBC 6.9 RBC 4.56 Hgb 12.6 L Hct 37.6 L MCV 83 MCH 27.6 MCHC 33.5 RDW 16.9 H Plt Count 196 Lymph % (Auto) 20.7 Teller % (Auto) 7.5 Eos % (Auto) 1.4 Baso % (Auto) 0.6 Absolute Neuts (auto) 4.8 Absolute Lymphs (auto) 1.4 Absolute Monos (auto) 0.5 Absolute Eos (auto) 0.1 Absolute Basos (auto) 0.0 Seg Neutrophils % 69.8 Sodium 134.1 L Potassium 4.4 Chloride 105 Carbon Dioxide 27 Anion Gap 2 L BUN 12 Creatinine 1.18 Est GFR ( Amer) > 60 Est GFR (MDRD) Non-Af 58 L Glucose 153 H POC Glucose Calcium 9.5 Phosphorus Magnesium Total Bilirubin 0.9 Direct Bilirubin 0.0 Neonat Total Bilirubin Not Reportable Neonat Direct Bilirubin Not Reportable Neonat Indirect Bili Not Reportable AST 18 ALT 12 Alkaline Phosphatase 56 Creatine Kinase 73 CK-MB (CK-2) 0.75 Troponin I < 0.012 NT-Pro-B Natriuret Pep Total Protein 6.2 L Albumin 3.8 TSH Free T4 Free T3 pg/mL Urine Color Urine Appearance Urine pH Ur Specific Ironside Urine Protein Urine Glucose (UA) Urine Ketones Urine Blood Urine Nitrite (Reflex) Urine Bilirubin Urine Urobilinogen Leukocyte Esterase Rfl Urine RBC (Auto) U Hyaline Cast (Auto) Urine WBC (Reflex) Squamous Epi Cells Auto Urine Mucus (Auto) Urine Ascorbic Acid 01/18/20 01/18/20 01/19/20 20:10 20:10 00:10 WBC RBC Hgb Hct MCV MCH MCHC RDW Plt Count Lymph % (Auto) Teller % (Auto) Eos % (Auto) Baso % (Auto) Absolute Neuts (auto) Absolute Lymphs (auto) Absolute Monos (auto) Absolute Eos (auto) Absolute Basos (auto) Seg Neutrophils % Sodium Potassium Chloride Carbon Dioxide Anion Gap BUN Creatinine Est GFR ( Amer) Est GFR (MDRD) Non-Af Glucose POC Glucose Calcium Phosphorus 3.8 Magnesium 2.2 Total Bilirubin Direct Bilirubin Neonat Total Bilirubin Neonat Direct Bilirubin Neonat Indirect Bili AST ALT Alkaline Phosphatase Creatine Kinase CK-MB (CK-2) Troponin I < 0.012 NT-Pro-B Natriuret Pep 336 Total Protein Albumin TSH Free T4 Free T3 pg/mL Urine Color Urine Appearance Urine pH Ur Specific Ironside Urine Protein Urine Glucose (UA) Urine Ketones Urine Blood Urine Nitrite (Reflex) Urine Bilirubin Urine Urobilinogen Leukocyte Esterase Rfl Urine RBC (Auto) U Hyaline Cast (Auto) Urine WBC (Reflex) Squamous Epi Cells Auto Urine Mucus (Auto) Urine Ascorbic Acid 01/19/20 01/19/20 01/19/20 00:35 01:55 01:55 WBC RBC Hgb Hct MCV MCH MCHC RDW Plt Count Lymph % (Auto) Teller % (Auto) Eos % (Auto) Baso % (Auto) Absolute Neuts (auto) Absolute Lymphs (auto) Absolute Monos (auto) Absolute Eos (auto) Absolute Basos (auto) Seg Neutrophils % Sodium 137.6 Potassium 4.4 Chloride 105 Carbon Dioxide 26 Anion Gap 7 BUN 14 Creatinine 1.03 Est GFR ( Amer) > 60 Est GFR (MDRD) Non-Af > 60 Glucose 108 POC Glucose Calcium 9.5 Phosphorus Magnesium Total Bilirubin Direct Bilirubin Neonat Total Bilirubin Neonat Direct Bilirubin Neonat Indirect Bili AST ALT Alkaline Phosphatase Creatine Kinase 70 CK-MB (CK-2) 0.82 Troponin I < 0.012 NT-Pro-B Natriuret Pep Total Protein Albumin TSH Free T4 Free T3 pg/mL Urine Color YELLOW Urine Appearance SLIGHTLY-CLOUDY Urine pH 5.0 Ur Specific [place] 1.015 Urine Protein NEGATIVE Urine Glucose (UA) NEGATIVE Urine Ketones NEGATIVE Urine Blood NEGATIVE Urine Nitrite (Reflex) NEGATIVE Urine Bilirubin NEGATIVE Urine Urobilinogen 2.0 H Leukocyte Esterase Rfl NEGATIVE Urine RBC (Auto) 2 U Hyaline Cast (Auto) 1 Urine WBC (Reflex) 1 Squamous Epi Cells Auto <1 Urine Mucus (Auto) FEW Urine Ascorbic Acid NEGATIVE 01/19/20 01/19/20 01/19/20 08:01 08:01 08:01 WBC RBC Hgb Hct MCV MCH MCHC RDW Plt Count Lymph % (Auto) Teller % (Auto) Eos % (Auto) Baso % (Auto) Absolute Neuts (auto) Absolute Lymphs (auto) Absolute Monos (auto) Absolute Eos (auto) Absolute Basos (auto) Seg Neutrophils % Sodium Potassium Chloride Carbon Dioxide Anion Gap BUN Creatinine Est GFR ( Amer) Est GFR (MDRD) Non-Af Glucose POC Glucose Calcium Phosphorus Magnesium Total Bilirubin Direct Bilirubin Neonat Total Bilirubin Neonat Direct Bilirubin Neonat Indirect Bili AST ALT Alkaline Phosphatase Creatine Kinase 67 CK-MB (CK-2) 0.77 Troponin I < 0.012 NT-Pro-B Natriuret Pep Total Protein Albumin TSH 2.84 Free T4 0.74 L Free T3 pg/mL 2.39 L Urine Color Urine Appearance Urine pH Ur Specific Ironside Urine Protein Urine Glucose (UA) Urine Ketones Urine Blood Urine Nitrite (Reflex) Urine Bilirubin Urine Urobilinogen Leukocyte Esterase Rfl Urine RBC (Auto) U Hyaline Cast (Auto) Urine WBC (Reflex) Squamous Epi Cells Auto Urine Mucus (Auto) Urine Ascorbic Acid 01/19/20 01/19/20 01/19/20 08:27 12:18 14:03 WBC RBC Hgb Hct MCV MCH MCHC RDW Plt Count Lymph % (Auto) Teller % (Auto) Eos % (Auto) Baso % (Auto) Absolute Neuts (auto) Absolute Lymphs (auto) Absolute Monos (auto) Absolute Eos (auto) Absolute Basos (auto) Seg Neutrophils % Sodium Potassium Chloride Carbon Dioxide Anion Gap BUN Creatinine Est GFR ( Amer) Est GFR (MDRD) Non-Af Glucose POC Glucose 82 130 H Calcium Phosphorus Magnesium Total Bilirubin Direct Bilirubin Neonat Total Bilirubin Neonat Direct Bilirubin Neonat Indirect Bili AST ALT Alkaline Phosphatase Creatine Kinase 85 CK-MB (CK-2) Troponin I NT-Pro-B Natriuret Pep Total Protein Albumin TSH Free T4 Free T3 pg/mL Urine Color Urine Appearance Urine pH Ur Specific [place] Urine Protein Urine Glucose (UA) Urine Ketones Urine Blood Urine Nitrite (Reflex) Urine Bilirubin Urine Urobilinogen Leukocyte Esterase Rfl Urine RBC (Auto) U Hyaline Cast (Auto) Urine WBC (Reflex) Squamous Epi Cells Auto Urine Mucus (Auto) Urine Ascorbic Acid 01/19/20 01/19/20 01/19/20 14:03 16:39 22:24 WBC RBC Hgb Hct MCV MCH MCHC RDW Plt Count Lymph % (Auto) Teller % (Auto) Eos % (Auto) Baso % (Auto) Absolute Neuts (auto) Absolute Lymphs (auto) Absolute Monos (auto) Absolute Eos (auto) Absolute Basos (auto) Seg Neutrophils % Sodium Potassium Chloride Carbon Dioxide Anion Gap BUN Creatinine Est GFR ( Amer) Est GFR (MDRD) Non-Af Glucose POC Glucose 101 110 Calcium Phosphorus Magnesium Total Bilirubin Direct Bilirubin Neonat Total Bilirubin Neonat Direct Bilirubin Neonat Indirect Bili AST ALT Alkaline Phosphatase Creatine Kinase CK-MB (CK-2) 0.80 Troponin I 0.012 NT-Pro-B Natriuret Pep Total Protein Albumin TSH Free T4 Free T3 pg/mL Urine Color Urine Appearance Urine pH Ur Specific [place] Urine Protein Urine Glucose (UA) Urine Ketones Urine Blood Urine Nitrite (Reflex) Urine Bilirubin Urine Urobilinogen Leukocyte Esterase Rfl Urine RBC (Auto) U Hyaline Cast (Auto) Urine WBC (Reflex) Squamous Epi Cells Auto Urine Mucus (Auto) Urine Ascorbic Acid Head CT 01/18/20 00:00 IMPRESSION: 1. No acute intracranial findings. 2. Senescent changes with chronic microvascular ischemia. Chest X-Ray 01/18/20 21:50 IMPRESSION: No acute disease. The patient had 2 EKGs. The patient's initial EKG shows sinus rhythm. Probable LVH with strain pattern. Cannot exclude old inferior OK. T inversion lateral leads cannot rule out lateral wall ischemia.. The second EKG is similar. The patient's COVID testing result is awaited. IMPRESSION/RECOMMENDATION: 1. Abnormal EKG: This may be secondary to the patient's left ventricle hypertrophy. But cannot exclude ischemia. So far there is no evidence of myocardial infarction. In view of the patient's age and mental status would recommend maximizing the patient's anti-CAD medication. Patient not a candidate for aggressive treatment modalities such as cardiac catheterization. Will discuss with the patient's daughter. 6.25 mg p.o. every 12 hours. Will add topical nitrates.. 3. Coronary artery disease: History of myocardial infarction. Medication adjustment as mentioned above. 4. Hypertension: Blood pressure well controlled 5. Diabetes mellitus: Continue antidiabetic medication. 6. History of coronary artery bypass graft surgery. 7. Legal blindness. 8. Peripheral vascular disease: Patient asymptomatic 9. Possible mild dementia. Occasions reviewed. Medications adjusted. Medical regimen and management plan discussed with Dr. Sarah. 60 minutes spent on this patient with more than 50% time spent in direct patient care. Medical decision making is of high complexity. Will follow
[2020-01-19] MEDS ORDERED: CARVEDILOL 6.25 MG TABLET PO SCH (22:00)
[2020-01-19] MEDS: CETIRIZINE 5 MG TABLET PO SCH (22:38)
[2020-01-19] MEDS: ATORVASTATIN CALCIUM 10 MG TABLET PO SCH (22:38)
[2020-01-20 05:36] LABS: ABSOLUTE EOSINOPHILS # (AUTO) 0.1 10^3/uL (0.0-0.6); ABSOLUTE LYMPHOCYTES (AUTO) 1.8 10^3/uL (0.5-4.7); ABSOLUTE MONOCYTES (AUTO) 0.6 10^3/uL (0.1-1.4); ABSOLUTE NEUT (AUTO) 2.1 10^3/uL (1.7-8.2); BASOPHILS % (AUTO) 0.9 % (0-2); EOSINOPHILS % (AUTO) 2.8 % (0-6); HEMATOCRIT 39.3 % (37.9-51.0); HEMOGLOBIN 13.3 g/dL (13.5-17.0); LYMPHOCYTES % (AUTO) 39.1 % (13-45); MEAN CORPUSCULAR HEMOGLOBIN 27.3 pg (27.0-33.4); MEAN CORPUSCULAR HGB CONC 33.8 g/dL (32.0-36.0); MEAN CORPUSCULAR VOLUME 81 fl (80-97); MONOCYTES % (AUTO) 12.5 % (3-13); PLATELET COUNT 188 10^3/uL (150-450); RED BLOOD COUNT 4.87 10^6/uL (4.35-5.55); RED CELL DISTRIBUTION WIDTH 17.1 % (11.5-14.0); SEGMENTED NEUTROPHILS % (AUTO) 44.7 % (42-78); TOTAL CELLS COUNTED % (AUTO) 100 %; WHITE BLOOD COUNT 4.7 10^3/uL (4.0-10.5)
[2020-01-20] MEDS: INSULIN LISPRO 100 UNIT/ML 3 ML VIAL SUBCUT SCH ×4 (08:41→22:21)
[2020-01-20] MEDS: ALLOPURINOL 100 MG TABLET PO SCH (09:12)
[2020-01-20] MEDS: DOCUSATE SODIUM 100 MG CAPSULE PO SCH (09:12)
[2020-01-20] MEDS: FUROSEMIDE 20 MG TABLET PO SCH (09:12)
[2020-01-20] MEDS: CLOPIDOGREL BISULFATE 75 MG TABLET PO SCH (09:12)
[2020-01-20] MEDS: FAMOTIDINE 20 MG TABLET PO SCH ×2 (09:12→22:06)
[2020-01-20] MEDS: AMLODIPINE BESYLATE 10 MG TABLET PO SCH (09:12)
[2020-01-20] MEDS: LOSARTAN POTASSIUM 50 MG TABLET PO SCH (09:13)
[2020-01-20] MEDS: CARVEDILOL 6.25 MG TABLET PO SCH ×2 (09:13→22:06)
[2020-01-20] MEDS: ASPIRIN 81 MG TABLET, ENT COATED PO SCH (09:13)
[2020-01-20] MEDS: ENOXAPARIN SODIUM INJ 40 MG/0.4 ML DISP.SYRIN SUBCUT SCH (09:13)
[2020-01-20] MEDS: NITROGLYCERIN 5 MG (0.2 MG/HR) PATCH.TD24 TD SCH (09:13)
--- NOTE | 2020-01-20 09:32 | PDOC PROGRESS REPORT ---
Subjective Progress Note for:: 01/20/20 Subjective:: Patient is currently doing well Seen by the cardiology about abnormal EKG suggest continues to current medications no need for any further interventions Otherwise no fever no chills Patient admitting in the COVID floor due to the pending covid Patient is currently does not have any symptoms Reason For Visit: SYNCOPE AND COLLAPSE Physical Exam Vital Signs: Temp Pulse Resp BP Pulse Ox 98.2 F 69 16 149/85 H 95 01/20/20 07:43 01/20/20 07:43 01/20/20 07:43 01/20/20 07:43 01/20/20 07:43 Intake & Output 01/19/20 01/20/20 01/21/20 06:59 06:59 06:59 Intake Total 250 Output Total 110 Balance 140 Weight 87.8 kg 89.6 kg Results Laboratory Results: 01/20/20 05:02 01/19/20 01:55 01/19/20 01/20/20 08:01 05:02 WBC 4.7 RBC 4.87 Hgb 13.3 L Hct 39.3 MCV 81 MCH 27.3 MCHC 33.8 RDW 17.1 H Plt Count 188 Seg Neutrophils % 44.7 TSH 2.84 Free T4 0.74 L Free T3 pg/mL 2.39 L 01/18/20 01/18/20 01/18/20 20:10 20:10 20:10 Creatine Kinase 73 CK-MB (CK-2) 0.75 Troponin I < 0.012 NT-Pro-B Natriuret Pep 336 01/19/20 01/19/20 01/19/20 00:10 01:55 01:55 Creatine Kinase 70 CK-MB (CK-2) 0.82 Troponin I < 0.012 < 0.012 NT-Pro-B Natriuret Pep 01/19/20 01/19/20 01/19/20 08:01 08:01 14:03 Creatine Kinase 67 85 CK-MB (CK-2) 0.77 Troponin I < 0.012 NT-Pro-B Natriuret Pep 01/19/20 14:03 Creatine Kinase CK-MB (CK-2) 0.80 Troponin I 0.012 NT-Pro-B Natriuret Pep Impressions: Head CT 01/18/20 00:00 IMPRESSION: 1. No acute intracranial findings. 2. Senescent changes with chronic microvascular ischemia. Chest X-Ray 01/18/20 21:50 IMPRESSION: No acute disease. copyright 2011 [employer]- All Rights Reserved Assessment & Plan - Diagnosis (1) Abnormal EKG Is this a current diagnosis for this admission?: Yes (2) Syncope Qualifiers: Syncope type: unspecified Qualified Code(s): R55 - Syncope and collapse Is this a current diagnosis for this admission?: Yes (3) Brain aneurysm Is this a current diagnosis for this admission?: Yes (4) Colorectal cancer Is this a current diagnosis for this admission?: Yes (5) Coronary artery disease Qualifiers: Coronary Disease-Associated Artery/Lesion type: unspecified vessel or lesion type Is this a current diagnosis for this admission?: Yes (6) Hyperlipidemia Qualifiers: Hyperlipidemia type: unspecified Is this a current diagnosis for this admission?: Yes (7) Hypertension Qualifiers: Hypertension type: essential hypertension Is this a current diagnosis for this admission?: Yes (8) Spinal stenosis at L4-L5 level Is this a current diagnosis for this admission?: Yes (9) Type 2 diabetes mellitus Qualifiers: Diabetes mellitus exterminator helper termite insulin use: without chcf use Is this a current diagnosis for this admission?: Yes - Time Time Spent with patient: 15-24 minutes Level of Care: IMCU Anticipated discharge: Home with Homehealth Anticipated DC Timeframe: within 24 hours - Plan Summary Plan Summary: Patient is currently stable hopefully will discharge patients tomorrow morning discussed with the daughter
[2020-01-20] MEDS ORDERED: LISINOPRIL 10 MG TABLET PO SCH (10:00)
--- NOTE | 2020-01-20 20:06 | EKG REPORT ---
SEVERITY:- ABNORMAL ECG - SINUS RHYTHM MULTIPLE ATRIAL PREMATURE COMPLEXES LVH WITH SECONDARY REPOLARIZATION ABNORMALITY PROBABLE INFERIOR INFARCT, OLD : Confirmed by: Marielena Ward MD 20-Jan-2020 20:05:24
--- NOTE | 2020-01-20 20:10 | Progress Note ---
Provider Note Provider Note: CARDIOLOGY PROGRESS NOTE by Dr. Larry Lema on 01/20/2020. SUBJECTIVE: The patient denies any chest pain or discomfort. There is no shortness of breath. There is no PND orthopnea. He is tolerating the increase in Coreg and also the nitrates. His COVID testing is still not back yet. But he is afebrile and denies any cough or sore throat. There is no PND orthopnea or leg edema. There is no arrhythmias seen on the monitor. SUBJECTIVE: The patient appears to be stated age. In no acute distress Selected Entries 01/20/20 15:41 Temperature 97.6 F Temperature Axillary Source Pulse Rate 67 Respiratory 16 Rate Blood Pressure 97/64 L Blood Pressure 75 Mean BP Location Left Arm BP Position Supine O2 Sat by Pulse 92 Oximetry Oxygen Delivery Room Air Method HEAD: Is atraumatic normocephalic. EYES: Pupils are equal round regular reactive to light and accommodation. Extraocular movements are normal. There is no conjunctival pallor. There is no scleral icterus. EARS: Tympanic membranes are intact. External auditory canals are clear. NOSE: There is no deviated nasal septum straight there is no inflammation nasal mucous membrane MOUTH: Mucous membranes of mouth are moist tongue is moist. THROAT: There is no redness of the oropharynx. There is no exudates. SKIN: There is no skin rashes there is no petechia or ecchymosis. NECK: Is supple. There is no JVD. Carotids are equal there is no bruit. There is no lymphadenopathy. There is no goiter. Trachea central. LUNGS: Is clear to auscultation percussion without any rhonchi rales or wheezing. HEART: S1-S2 is heard. There is no S3 gallop. There is no S4 gallop. There is systolic murmur left sternal border and the apex there is no rub. ABDOMEN: Soft. Nontender. There is no hepatosplenomegaly. Bowel sounds are well heard. EXTREMITIES: Femorals are diminished. There is no femoral bruits. Leg pulses are diminished. There is no DVT or cellulitis. There is no pedal edema. There is no cyanosis or clubbing. RESIDENT SERVICE COORDINATOR: The patient is conscious slightly confused and forgetful. There is no focal deficits. PSYCHIATRIC: The patient does not appear to be agitated or anxious. Labs- All tests 24 hr 01/19/20 01/20/20 01/20/20 22:24 05:02 07:44 WBC 4.7 RBC 4.87 Hgb 13.3 L Hct 39.3 MCV 81 MCH 27.3 MCHC 33.8 RDW 17.1 H Plt Count 188 Lymph % (Auto) 39.1 [place] % (Auto) 12.5 Eos % (Auto) 2.8 Baso % (Auto) 0.9 Absolute Neuts (auto) 2.1 Absolute Lymphs (auto) 1.8 Absolute Monos (auto) 0.6 Absolute Eos (auto) 0.1 Absolute Basos (auto) 0.0 Seg Neutrophils % 44.7 POC Glucose 110 80 01/20/20 01/20/20 11:25 15:42 WBC RBC Hgb Hct MCV MCH MCHC RDW Plt Count Lymph % (Auto) [place] % (Auto) Eos % (Auto) Baso % (Auto) Absolute Neuts (auto) Absolute Lymphs (auto) Absolute Monos (auto) Absolute Eos (auto) Absolute Basos (auto) Seg Neutrophils % POC Glucose [address] 01/18/20 00:00 IMPRESSION: 1. No acute intracranial findings. 2. Senescent changes with chronic microvascular ischemia. Chest X-Ray 01/18/20 21:50 IMPRESSION: No acute disease. copyright 2010 [employer]- All Rights Reserved EKG: SINUS RHYTHM [MAPC] . MULTIPLE ATRIAL PREMATURE COMPLEXES [LVHREP] . LVH WITH SECONDARY REPOLARIZATION ABNORMALITY [IMI24] . PROBABLE INFERIOR INFARCT, OLD: EKG was reviewed and interpreted by me] IMPRESSION/RECOMMENDATION: 1. Abnormal EKG: This may be secondary to the patient's left ventricle hypertrophy. But cannot exclude ischemia. So far there is no evidence of myocardial infarction. In view of the patient's age and mental status would recommend maximizing the patient's anti-CAD medication. Patient not a candidate for aggressive treatment modalities such as cardiac catheterization. Will discuss with the patient's daughter. Patient tolerating Coreg 6.25 mg p.o. every 12 hours, and topical nitrates.. 3. Coronary artery disease: History of myocardial infarction. Continue aspirin Plavix beta blockers and nitrates. 4. Hypertension: Blood pressure well controlled 5. Diabetes mellitus: Continue antidiabetic medication. 6. History of coronary artery bypass graft surgery. 7. Legal blindness. 8. Peripheral vascular disease: Patient asymptomatic 9. Possible mild dementia. Medications reviewed. Medications adjusted. Medical regimen and management plan discussed with Dr. Sarah. Medical decision making is a moderate complexity. 40 minutes spent as patient more than 50% time spent in direct patient care. Will follow.
[2020-01-20] MEDS: CETIRIZINE 5 MG TABLET PO SCH (22:06)
[2020-01-20] MEDS: ATORVASTATIN CALCIUM 10 MG TABLET PO SCH (22:06)
[2020-01-21 04:25] VITALS: BP 125/76
[2020-01-21 05:50] LABS: ABSOLUTE EOSINOPHILS # (AUTO) 0.1 10^3/uL (0.0-0.6); ABSOLUTE LYMPHOCYTES (AUTO) 1.7 10^3/uL (0.5-4.7); ABSOLUTE MONOCYTES (AUTO) 0.6 10^3/uL (0.1-1.4); BASOPHILS % (AUTO) 0.9 % (0-2); EOSINOPHILS % (AUTO) 2.1 % (0-6); HEMOGLOBIN 12.1 g/dL (13.5-17.0); LYMPHOCYTES % (AUTO) 38.2 % (13-45); MEAN CORPUSCULAR HEMOGLOBIN 27.8 pg (27.0-33.4); MEAN CORPUSCULAR HGB CONC 34.6 g/dL (32.0-36.0); MEAN CORPUSCULAR VOLUME 80 fl (80-97); MONOCYTES % (AUTO) 13.6 % (3-13); PLATELET COUNT 184 10^3/uL (150-450); RED BLOOD COUNT 4.36 10^6/uL (4.35-5.55); RED CELL DISTRIBUTION WIDTH 17.1 % (11.5-14.0); SEGMENTED NEUTROPHILS % (AUTO) 45.2 % (42-78); TOTAL CELLS COUNTED % (AUTO) 100 %; WHITE BLOOD COUNT 4.4 10^3/uL (4.0-10.5)
--- NOTE | 2020-01-21 09:19 | PDOC DISCHARGE SUMMARY ---
Impression - Admit/DC Date/PCP Admission Date/Primary Care Provider: 01/19/20 01:32 KAILYN BERNABE MD Discharge Date: 01/21/20 - Discharge Diagnosis (1) Abnormal EKG Is this a current diagnosis for this admission?: Yes (2) Syncope Is this a current diagnosis for this admission?: Yes (3) Brain aneurysm Is this a current diagnosis for this admission?: Yes (4) Colorectal cancer Is this a current diagnosis for this admission?: Yes (5) Coronary artery disease Is this a current diagnosis for this admission?: Yes (6) Hyperlipidemia Is this a current diagnosis for this admission?: Yes (7) Hypertension Is this a current diagnosis for this admission?: Yes (8) Spinal stenosis at L4-L5 level Is this a current diagnosis for this admission?: Yes (9) Type 2 diabetes mellitus Is this a current diagnosis for this admission?: Yes - Additional Information Discharge Diet: Diabetic Discharge Activity: Activity As Tolerated Referrals: KAILYN BERNABE MD [Primary Care Provider] - Follow up as needed (f/u with dr sinha send all rx to [facility] is back order so send micardis 20 mg appointment on january 24 at 2:30pm) Prescriptions: Losartan Potassium [Cozaar 50 mg Tablet] 25 mg PO DAILY #15 tablet Nitroglycerin [Nitro-Dur 5 mg (0.2 mg/Hr) Transdermal Patch] 1 each TD DAILY #30 patch.td24 Home Medications: Allopurinol [Zyloprim 100 mg Tablet] 100 mg PO DAILY 06/28/19 Amlodipine Besylate [Norvasc 10 mg Tablet] 10 mg PO DAILY 06/28/19 Aspirin [Adult Low Dose Aspirin EC] 81 mg PO QAM 06/28/19 Atorvastatin Calcium [Lipitor 10 mg Tablet] 40 mg PO QHS 06/28/19 Clopidogrel Bisulfate [Plavix] 75 mg PO DAILY 06/28/19 Docusate Sodium [Stool Softener] 100 mg PO DAILY 06/28/19 Famotidine [Pepcid 40 mg Tablet] 40 mg PO DAILY 06/28/19 Iron 325 mg PO QHS 06/28/19 Levocetirizine Dihydrochloride [Xyzal] 5 mg PO QHS 06/28/19 Furosemide [Lasix 20 mg Tablet] 20 mg PO DAILY 01/19/20 Carvedilol [Coreg] 6.25 mg PO BID #180 01/21/20 Losartan Potassium [Cozaar 50 mg Tablet] 25 mg PO DAILY #15 tablet 01/21/20 Nitroglycerin [Nitro-Dur 5 mg (0.2 mg/Hr) Transdermal Patch] 1 each TD DAILY #30 patch.td24 01/21/20 History of Present Illiness History of Present Illness: RUPINDER VELAZCO is a 89 year old male This is a 89-year-old male's with a history of the coronary artery disease cur rently see Dr. Sinha as an outpatient history of the hypertension hyperlipidemia history of the stroke in the past and history of the small brain aneurysm in the past colon cancer and legally blindCurrently lives with his daughter brought to the emergency department because the patient was not doing well this morning feeling weak and tired and according to the daughter he is not in usual state In the emergency department patient's initial CT of the head was negative patient's blood work is all stable except patient EKG some T wave changes repeat cardiac enzymes x3 is negative and ER physician asked to admit because of the some EKG change When I saw the patient's denied any chest pain no short of breath patients feel fine when I ask Patients have a some cough but mostly dry cough I think coming from the lisinopril patient does not have any COVID-like symptoms not contact with any COVID Patient's COVID test is pending Patient's otherwise doing well decided to admit in the hospital to further cardiac evaluations Hospital Course Hospital Course: Is a 89-year-old male admitted because of the abnormal EKGs and a questionable syncopal episodes Patient seen by cardiology rule out acute coronary syndromes patient CT head was negative Because of ongoing pandemic patient have a core weight test was done was also negative Patient have ongoing dry cough which discontinues the lisinopril and add the myocarditis According to the Dr. Ward patients does not need any interventions just readjustment of the medications Patient's otherwise doing well denied any chest pain no short of breath p.o. intake is good no fever no cough Patient is back to the baseline's discussed with the Dr. Sinha suggest to follow outpatient Discussed with the patient's daughter regarding the patient's current conditions follow-up Physical Exam Vital Signs: Temp Pulse Resp BP Pulse Ox 98.1 F 59 L 16 125/76 92 01/21/20 09:04 07/30/20 09:04 01/21/20 09:04 01/21/20 03:29 01/21/20 09:04 Intake & Output 01/20/20 01/21/20 01/22/20 06:59 06:59 06:59 Intake Total 250 350 Output Total 110 550 Balance 140 -200 Weight 89.6 kg 88.2 kg General appearance: PRESENT: no acute distress, well-developed, well-nourished Head exam: PRESENT: atraumatic, normocephalic Eye exam: PRESENT: conjunctiva pink, EOMI, PERRLA. ABSENT: scleral icterus Ear exam: PRESENT: normal external ear exam Mouth exam: PRESENT: moist, tongue midline Neck exam: ABSENT: carotid bruit, JVD, lymphadenopathy, thyromegaly Respiratory exam: PRESENT: clear to auscultation [place]. ABSENT: rales, rhonchi, wheezes Cardiovascular exam: PRESENT: RRR. ABSENT: diastolic murmur, rubs, systolic murmur Pulses: PRESENT: normal dorsalis pedis pul Vascular exam: PRESENT: normal capillary refill GI/Abdominal exam: PRESENT: normal bowel sounds, soft. ABSENT: distended, guarding, mass, organolmegaly, rebound, tenderness Rectal exam: PRESENT: deferred Extremities exam: PRESENT: full ROM. ABSENT: calf tenderness, clubbing, pedal edema Neurological exam: PRESENT: alert, awake, oriented to person, oriented to place, oriented to time, oriented to situation, CN II-XII grossly intact. ABSENT: motor sensory deficit Psychiatric exam: PRESENT: appropriate affect, normal mood. ABSENT: homicidal ideation, suicidal ideation Skin exam: PRESENT: dry, intact, warm. ABSENT: cyanosis, rash Additional comments: Patient is legally blind bilaterally Results Laboratory Results: WBC 4.4 10^3/uL (4.0-10.5) 01/21/20 05:07 RBC 4.36 10^6/uL (4.35-5.55) 01/21/20 05:07 Hgb 12.1 g/dL (13.5-17.0) L 01/21/20 05:07 Hct 35.0 % (37.9-51.0) L 01/21/20 05:07 MCV 80 fl (80-97) 01/21/20 05:07 MCH 27.8 pg (27.0-33.4) 01/21/20 05:07 MCHC 34.6 g/dL (32.0-36.0) 01/21/20 05:07 RDW 17.1 % (11.5-14.0) H 01/21/20 05:07 Plt Count 184 10^3/uL (150-450) 01/21/20 05:07 Lymph % (Auto) 38.2 % (13-45) 01/21/20 05:07 [place] % (Auto) 13.6 % (3-13) H 01/21/20 05:07 Eos % (Auto) 2.1 % (0-6) 01/21/20 05:07 Baso % (Auto) 0.9 % (0-2) 01/21/20 05:07 Absolute Neuts (auto) 2.0 10^3/uL (1.7-8.2) 01/21/20 05:07 Absolute Lymphs (auto) 1.7 10^3/uL (0.5-4.7) 01/21/20 05:07 Absolute Monos (auto) 0.6 10^3/uL (0.1-1.4) 01/21/20 05:07 Absolute Eos (auto) 0.1 10^3/uL (0.0-0.6) 01/21/20 05:07 Absolute Basos (auto) 0.0 10^3/uL (0.0-0.2) 01/21/20 05:07 Seg Neutrophils % 45.2 % (42-78) 01/21/20 05:07 Sodium 137.6 mmol/L (137-145) 01/19/20 01:55 Potassium 4.4 mmol/L (3.6-5.0) 01/19/20 01:55 Chloride 105 mmol/L (98-107) 01/19/20 01:55 Carbon Dioxide 26 mmol/L (22-30) 01/19/20 01:55 Anion Gap 7 (5-19) 01/19/20 01:55 BUN 14 mg/dL (7-20) 01/19/20 01:55 Creatinine 1.03 mg/dL (0.52-1.25) 01/19/20 01:55 Est GFR ( Amer) > 60 (>60) 01/19/20 01:55 Est GFR (MDRD) Non-Af > 60 (>60) 01/19/20 01:55 Glucose 108 mg/dL (75-110) 01/19/20 01:55 POC Glucose 100 mg/dL (70-110) 01/21/20 08:52 Calcium 9.5 mg/dL (8.4-10.2) 01/19/20 01:55 Phosphorus 3.8 mg/dL (2.5-4.5) 01/18/20 20:10 Magnesium 2.2 mg/dL (1.6-2.3) 01/18/20 20:10 Total Bilirubin 0.9 mg/dL (0.2-1.3) 01/18/20 20:10 Direct Bilirubin 0.0 mg/dL (0.0-0.4) 01/18/20 20:10 Neonat Total Bilirubin Not Reportable 01/18/20 20:10 Neonat Direct Bilirubin Not Reportable 01/18/20 20:10 Neonat Indirect Bili Not Reportable 01/18/20 20:10 AST 18 U/L (17-59) 01/18/20 20:10 ALT 12 U/L (<50) 01/18/20 20:10 Alkaline Phosphatase 56 U/L (38-126) 01/18/20 20:10 Creatine Kinase 85 U/L (55-170) 01/19/20 14:03 CK-MB (CK-2) 0.80 ng/mL (<4.55) 01/19/20 14:03 Troponin I 0.012 ng/mL 01/19/20 14:03 NT-Pro-B Natriuret Pep 336 pg/mL (<450) 01/18/20 20:10 Total Protein 6.2 g/dL (6.3-8.2) L 01/18/20 20:10 Albumin 3.8 g/dL (3.5-5.0) 01/18/20 20:10 TSH 2.84 uIU/mL (0.47-4.68) 01/19/20 08:01 Free T4 0.74 ng/dL (0.78-2.19) L 01/19/20 08:01 Free T3 pg/mL 2.39 pg/mL (2.77-5.27) L 01/19/20 08:01 Urine Color YELLOW 01/19/20 00:35 Urine Appearance SLIGHTLY-CLOUDY 01/19/20 00:35 Urine pH 5.0 (5.0-9.0) 01/19/20 00:35 Ur Specific [place] 1.015 01/19/20 00:35 Urine Protein NEGATIVE mg/dL (NEGATIVE) 01/19/20 00:35 Urine Glucose (UA) NEGATIVE mg/dL (NEGATIVE) 01/19/20 00:35 Urine Ketones NEGATIVE mg/dL (NEGATIVE) 01/19/20 00:35 Urine Blood NEGATIVE (NEGATIVE) 01/19/20 00:35 Urine Nitrite (Reflex) NEGATIVE (NEGATIVE) 01/19/20 00:35 Urine Bilirubin NEGATIVE (NEGATIVE) 01/19/20 00:35 Urine Urobilinogen 2.0 mg/dL (<2.0) H 01/19/20 00:35 Leukocyte Esterase Rfl NEGATIVE (NEGATIVE) 01/19/20 00:35 Urine RBC (Auto) 2 /HPF 01/19/20 00:35 U Hyaline Cast (Auto) 1 /LPF 01/19/20 00:35 Urine WBC (Reflex) 1 /HPF 01/19/20 00:35 Squamous Epi Cells Auto <1 /HPF 01/19/20 00:35 Urine Mucus (Auto) FEW /LPF 01/19/20 00:35 Urine Ascorbic Acid NEGATIVE (NEGATIVE) 01/19/20 00:35 COVID-19 Source NASOPHARYNGEAL 01/19/20 00:59 COVID-19 (CHANELL) NOT DETECTED 01/19/20 00:59 01/18/20 01/18/20 01/19/20 20:10 20:10 00:10 CK-MB (CK-2) 0.75 Troponin I < 0.012 < 0.012 NT-Pro-B Natriuret Pep 336 01/19/20 01/19/20 01/19/20 01:55 08:01 14:03 CK-MB (CK-2) 0.82 0.77 0.80 Troponin I < 0.012 < 0.012 0.012 NT-Pro-B Natriuret Pep Impressions: Head CT 01/18/20 00:00 IMPRESSION: 1. No acute intracranial findings. 2. Senescent changes with chronic microvascular ischemia. Chest X-Ray 01/18/20 21:50 IMPRESSION: No acute disease. copyright 2010 [employer]- All Rights Reserved Plan Time Spent: Greater than 30 Minutes - Follow outpatients cardiology with the Dr. Anel ernandez in office 1 week Stroke Is this a Stroke Patient?: No Acute Heart Failure - Is this a Heart Failure Patient?: No
[2020-01-21] MEDS: ENOXAPARIN SODIUM INJ 40 MG/0.4 ML DISP.SYRIN SUBCUT SCH (09:20)
[2020-01-21] MEDS: FAMOTIDINE 20 MG TABLET PO SCH (09:21)
[2020-01-21] MEDS: NITROGLYCERIN 5 MG (0.2 MG/HR) PATCH.TD24 TD SCH (09:21)
[2020-01-21] MEDS: ALLOPURINOL 100 MG TABLET PO SCH (09:22)
[2020-01-21] MEDS: LOSARTAN POTASSIUM 50 MG TABLET PO SCH (09:22)
[2020-01-21] MEDS: ASPIRIN 81 MG TABLET, ENT COATED PO SCH (09:22)
[2020-01-21] MEDS: FUROSEMIDE 20 MG TABLET PO SCH (09:22)
[2020-01-21] MEDS: DOCUSATE SODIUM 100 MG CAPSULE PO SCH (09:22)
[2020-01-21] MEDS: CARVEDILOL 6.25 MG TABLET PO SCH (09:22)
[2020-01-21] MEDS: CLOPIDOGREL BISULFATE 75 MG TABLET PO SCH (09:22)
[2020-01-21] MEDS: INSULIN LISPRO 100 UNIT/ML 3 ML VIAL SUBCUT SCH (09:22)
[2020-01-21] MEDS: AMLODIPINE BESYLATE 10 MG TABLET PO SCH (09:22)
== END 2020-01-21 11:34 | disposition home or self-care (01) ==
LOC: ER 19:14 → INTOOBSV 01-19 01:32 → EH 01-19 01:32 → 3N 01-19 19:57
PROVIDERS: ADMIT Family Medicine; ATTEND Family Medicine
DX: R55 Syncope and collapse (principal); R94.31 Abnormal electrocardiogram [ECG] [EKG]; Z86.79 Personal history of other diseases of the circulatory system; I25.10 Atherosclerotic heart disease of native coronary artery without angina pectoris; E78.5 Hyperlipidemia, unspecified; I10 Essential (primary) hypertension; E11.51 Type 2 diabetes mellitus with diabetic peripheral angiopathy without gangrene; M48.061 Spinal stenosis, lumbar region without neurogenic claudication; H54.8 Legal blindness, as defined in USA; I25.2 Old myocardial infarction; F03.90 Unspecified dementia, unspecified severity, without behavioral disturbance, psychotic disturbance, mood disturbance, and anxiety; R53.1 Weakness; R53.83 Other fatigue; R01.1 Cardiac murmur, unspecified; I67.82 Cerebral ischemia; M10.9 Gout, unspecified; Z85.038 Personal history of other malignant neoplasm of large intestine; Z79.899 Other long term (current) drug therapy; Z79.82 Long term (current) use of aspirin; Z86.73 Personal history of transient ischemic attack (TIA), and cerebral infarction without residual deficits; Z03.818 Encounter for observation for suspected exposure to other biological agents ruled out; Z95.1 Presence of aortocoronary bypass graft
CPT/HCPCS: 93005 ×3; 99285; 36415 ×4; 87086; 84439; 82553 ×2; 82962 ×3; 82550 ×2; 83735; 84100; 84443; 85025 ×3; 80048; 80053; 81001; 84484 ×2; 84481; 83880; 71045; 70450; 93010 ×3; U0003; A9270 ×27; J1650 ×3; C9803; 87635; J3490

== ENCOUNTER 2020-02-06 17:04 | Emergency (ER) | payer MEDICARE ==
--- NOTE | 2020-02-06 18:16 | ER Document Report ---
ED General - General Chief Complaint: General Weakness Stated Complaint: WEAKNESS Time Seen by Provider: 02/06/20 18:05 Primary Care Provider: KAILYN BERNABE MD [Primary Care Provider] - Follow up as needed TRAVEL OUTSIDE OF THE [place] IN LAST 30 DAYS: No - HPI Notes: 89-year-old male presents with generalized weakness. Information is primarily provided by patient's daughter, patient does participate as well. At some point this afternoon, sometime before 3 PM, patient had an episode of chest pain. It was on the right side of his chest, patient states pain came on too fast. Patient states that it was may be gas pain, he states that he went to the restroom and passed gas, that resolved the chest pain he was experiencing. He currently denies chest pain. His daughter states that he has had multiple MIs in the past. Patient states that he has a feeling of generalized weakness. Nothing is hurting him, no vomiting or diarrhea. He is to undergo stress test this upcoming . 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 Denies: Hx Graves' Disease, Hx Hyperthyroidism, Hx Hypothyroidism Renal/ Medical History: Denies: Hx Benign Prostatic Hyperplasia, Hx End Stage Renal Disease, Hx Kidney Stones, Hx Peritoneal Dialysis Malignancy Medical History: Denies Hx Leukemia GI Medical History: Denies: Hx Crohn's Disease, Hx Gastroesophageal Reflux Disease, Hx Hiatal Hernia, Hx Irritable Bowel, Hx Liver Failure, Hx Pancreatitis, Hx Ulcer Musculoskeletal Medical History: Reports Hx Arthritis - Hands,gout, Denies Hx Fibromyalgia, Denies Hx Multiple Sclerosis, Denies Hx Muscular Dystrophy, Denies Hx Systemic Lupus Erythematosus Psychiatric Medical History: Denies: Hx Dementia, Hx Depression Traumatic Medical History: Denies: Hx Fractures Infectious Medical History: Denies: Hx HIV Past Surgical History: Reports: Hx Cardiac Surgery - bypass, Hx Coronary Artery Bypass Graft - triple bypass 2002, Hx Herniorrhaphy - x2. Denies: Hx Appendectomy, Hx Bowel Surgery, Hx Cholecystectomy, Hx Colostomy, Hx Gastric Bypass Surgery, Hx Pacemaker, Hx Tonsillectomy - Immunizations Hx Diphtheria, Pertussis, Tetanus Vaccination: No Hx Pneumococcal Vaccination: 06/24/13 Review of Systems - Review of Systems Constitutional: No symptoms reported EENT: No symptoms reported Cardiovascular: Chest pain Respiratory: denies: Cough Gastrointestinal: No symptoms reported, Nausea Genitourinary: No symptoms reported Male Genitourinary: No symptoms reported Musculoskeletal: No symptoms reported Skin: No symptoms reported Hematologic/Lymphatic: No symptoms reported Neurological/Psychological: No symptoms reported Physical Exam - Vital signs Vitals: Temp 97.7 F 02/06/20 17:04 Interpretation: Normal - General General appearance: Appears well In distress: None - HEENT Head: Normocephalic, Atraumatic Conjunctiva: Normal - Respiratory Breath sounds: Normal - Cardiovascular Rhythm: Regular Heart sounds: Normal auscultation Normal capillary refill: Yes - Abdominal Bowel sounds: Normal Tenderness: Nontender - Extremities General lower extremity: No: Edema - Neurological Neuro grossly intact: Yes Cognition: Normal Orientation: AAOx4 Cranial nerves: Normal Motor strength normal: LUE, RUE, LLE, RLE Sensory: Normal - Psychological Associated symptoms: Normal affect - Skin Skin Temperature: Warm Course - Re-evaluation Re-evalutation: 89-year-old male presents with an episode of chest pain at home. Based on his description of the pain and that it resolved after passing gas, I do actually have a low suspicion for cardiac etiology at this time, although he does have a cardiac history. He currently is well-appearing on exam, his vitals are stable, he has no gross neuro deficits. We perform laboratory evaluation. His EKG does have inversions however this is similar to previous EKGs. 02/06/20 21:08 Troponin is negative. This was collected greater than 3 hours from initial set of chest pain. I went in to discuss work-up with patient and his daughter. Daughter would like for the patient to go home at this time. Patient remains well-appearing and has not had any episodes of chest pain since his initial one at home. He has cardiology follow-up this upcoming week. I discussed with patient and his daughter strict return precautions, he was stable at time of discharge. - Vital Signs Vital signs: Temp Pulse Resp BP Pulse Ox 97.4 F 68 15 144/77 H 97 02/06/20 21:15 02/06/20 17:15 02/06/20 21:01 02/06/20 21:01 02/06/20 21:01 - Laboratory Result Diagrams: 02/06/20 17:57 02/06/20 17:57 Laboratory results interpreted by me: 02/06/20 02/06/20 17:57 17:57 Hgb 12.5 L Hct 36.9 L RDW 17.4 H Chloride 108 H Anion Gap 3 L - EKG Interpretation by Me Additional EKG results interpreted by me: 02/08/20 03:07 EKG is interpreted by me. Sinus rhythm with rate 64. He has T wave inversions in 1 and aVL which are similar to previous EKGs. QTc within normal limits. Discharge - Discharge Clinical Impression: Atypical chest pain Condition: Stable Disposition: HOME, SELF-CARE Additional Instructions: Please follow-up with cardiology as planned. Return to the emergency department for any concerning or worsening symptoms. Referrals: KAILYN BERNABE MD [Primary Care Provider] - Follow up as needed
[2020-02-06] MEDS ORDERED: ASPIRIN 81 MG TABLET, CHEWABLE PO ONE (18:26)
[2020-02-06 18:42] LABS: ABSOLUTE EOSINOPHILS # (AUTO) 0.2 10^3/uL (0.0-0.6); ABSOLUTE LYMPHOCYTES (AUTO) 2.1 10^3/uL (0.5-4.7); ABSOLUTE MONOCYTES (AUTO) 0.5 10^3/uL (0.1-1.4); ABSOLUTE NEUT (AUTO) 2.2 10^3/uL (1.7-8.2); BASOPHILS % (AUTO) 0.8 % (0-2); EOSINOPHILS % (AUTO) 3.1 % (0-6); HEMATOCRIT 36.9 % (37.9-51.0); HEMOGLOBIN 12.5 g/dL (13.5-17.0); MEAN CORPUSCULAR HEMOGLOBIN 27.7 pg (27.0-33.4); MEAN CORPUSCULAR HGB CONC 33.8 g/dL (32.0-36.0); MEAN CORPUSCULAR VOLUME 82 fl (80-97); MONOCYTES % (AUTO) 10.5 % (3-13); PLATELET COUNT 233 10^3/uL (150-450); RED BLOOD COUNT 4.49 10^6/uL (4.35-5.55); RED CELL DISTRIBUTION WIDTH 17.4 % (11.5-14.0); SEGMENTED NEUTROPHILS % (AUTO) 43.6 % (42-78); TOTAL CELLS COUNTED % (AUTO) 100 %
[2020-02-06 18:52] LABS: ALBUMIN 4.1 g/dL (3.5-5.0); ALKALINE PHOSPHATASE 55 U/L (38-126); ASPARTATE AMINO TRANSFERASE 23 U/L (17-59); BILIRUBIN,TOTAL 0.6 mg/dL (0.2-1.3); BLOOD UREA NITROGEN 13 mg/dL (7-20); CALCIUM 9.4 mg/dL (8.4-10.2); CHLORIDE 108 mmol/L (98-107); GLUCOSE 97 mg/dL (75-110); POTASSIUM 4.4 mmol/L (3.6-5.0)
[2020-02-06 18:57] LABS: CARBON DIOXIDE 27 mmol/L (22-30)
[2020-02-06 19:00] LABS: ANION GAP 3 (5-19)
--- NOTE | 2020-02-06 19:01 | RADIOLOGY REPORT (SQ) ---
EXAM DESCRIPTION: CHEST 2 VIEWS IMAGES COMPLETED DATE/TIME: 02/06/2020 6:46 pm REASON FOR STUDY: chest pain COMPARISON: 01/18/2020 TECHNIQUE: Frontal and lateral radiographic views of the chest acquired. NUMBER OF VIEWS: Two view. LIMITATIONS: None. FINDINGS: LUNGS AND PLEURA: No pneumothorax. No consolidation or pleural effusion. MEDIASTINUM AND HILAR STRUCTURES: Stable. HEART AND VASCULAR STRUCTURES: Stable. BONES: No acute findings. HARDWARE: CABG. OTHER: No other significant finding. IMPRESSION: NO ACUTE FINDINGS. TECHNICAL DOCUMENTATION: JOB ID: [id number] [id number] 2010 [employer]- All Rights Reserved Reading location - IP/workstation name: [email or web address]
[2020-02-06 19:10] LABS: NT PRO BNP 282 pg/mL (<450)
[2020-02-06 19:12] LABS: TROPONIN I < 0.012 ng/mL
[2020-02-06 21:19] VITALS: BP 144/77
--- NOTE | 2020-02-06 23:18 | EKG REPORT ---
SEVERITY:- ABNORMAL ECG - SINUS RHYTHM VENTRICULAR PREMATURE COMPLEX LVH WITH SECONDARY REPOLARIZATION ABNORMALITY : Confirmed by: Scot Dumas MD 06-Feb-2020 23:17:38
== END 2020-02-06 21:22 | disposition home or self-care (01) ==
LOC: ER 17:04
DX: R07.89 Other chest pain (principal); R53.1 Weakness; I25.2 Old myocardial infarction; I25.10 Atherosclerotic heart disease of native coronary artery without angina pectoris; I10 Essential (primary) hypertension; E11.9 Type 2 diabetes mellitus without complications; E78.00 Pure hypercholesterolemia, unspecified; M10.9 Gout, unspecified; Z95.1 Presence of aortocoronary bypass graft; Z79.899 Other long term (current) drug therapy; Z79.82 Long term (current) use of aspirin; Z79.02 Long term (current) use of antithrombotics/antiplatelets
CPT/HCPCS: 93005; 99285; 36415; 85025; 80053; 84484; 83880; 71046; 93010; A9270